=== PATIENT | male | born 1985 | race Caucasian/White ===

== ENCOUNTER 2017-07-01 16:36 | Inpatient (IN) | payer OTHER ==
[2017-07-01] MEDS ORDERED: Mouth Piece, Nicotine* 1 EACH CARTRIDGE INH PRN (17:20)
[2017-07-01] MEDS ORDERED: Mouth Piece, Nicotine* 1 EACH CARTRIDGE ONE (17:28)
[2017-07-01] MEDS: Nicotine Inhaler* 10 MG AMP INH ONE ×2 (17:32→21:21)
--- NOTE | 2017-07-01 18:10 | ED ---
Psychiatric Complaint - HPI Summary HPI Summary: 32 male presents to ED brought in by police after stating he is having suicidal ideation. Denies homicidal ideation. States his "heart hurts because it is broken." Admits to alcohol use prior to arrival "a few natty daddy's". 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 Patient was quiet and did not share much history just said he has a lot of stress. Patient has been calling police stating suicidal statements. Told police if he isn't admitted to the hospital he will be tonight. Told officers that he "can't wait to buy a bullet and be done with it." Has not attempted self harm recently. Does have history of self harm and cutting wrists. No other complaints at this time. No PMHx. No other medications. No recent use of other drugs/heroin. Takes suboxone TID - History Of Current Complaint Chief Complaint: EDMentalHealth Time Seen by Provider: 07/01/17 17:03 Hx Obtained From: Patient, Other: - [employer] Onset/Duration: Gradual Onset Timing: Constant Severity Initially: Mild Severity Currently: Moderate Character: Depressed Aggravating Factor(s): Recent Stress, Alcohol Use Related History: Positive For: Prior Psychiatric Issues Has Suicidal: Reports: Thoughts. Denies: With A Plan - did not Has Homicidal: Denies: Thoughts, With A Plan - Allergies/Home Medications Allergies/Adverse Reactions: Allergies Allergy/AdvReac Type Severity Reaction Status Date / Time Trazodone Allergy Severe See Comment Verified 10/08/16 06:55 Penicillin V Allergy Mild Hives Verified 10/08/16 06:55 [From Penicillin VK Potassium] Tramadol Allergy Mild Hives Verified 10/08/16 06:55 Home Medications: Home Medications Buprenorphine/Naloxone SL TAB* [Suboxone 8-2 mg SL TAB*] 1 tab SL TID 07/01/17 [ History Confirmed 07/01/17] PMH/Surg Hx/FS Hx/Imm Hx Endocrine/Hematology History: Denies: Hx Diabetes, Hx Thyroid Disease Cardiovascular History: Denies: Hx Hypertension Respiratory History: Reports: Hx Pneumonia, Other Respiratory Problems/ Disorders - Hx Pneumonia Denies: Hx Asthma, Hx Chronic Bronchitis, Hx Chronic Obstructive Pulmonary Disease (COPD) GI History: Denies: Hx Ulcer History: Reports: Hx Acute Renal Failure Denies: Hx Renal Disease Comment Only: Other Problems/Disorders - Hepatitis C Musculoskeletal History: Reports: Hx Back Problems, Other Musculoskeletal History - head injury as child Denies: Hx Scoliosis Sensory History: Reports: Hx Vision Problem Denies: Hx Hearing Aid Comment Only: Hx Contacts or Glasses - unknown Opthamlomology History: Reports: Hx Vision Problem Comment Only: Hx Contacts or Glasses - unknown Neurological History: Denies: Hx Headaches, Other Neuro Impairments/Disorders Psychiatric History: Reports: Hx Suicide Attempt - 2 years ago - Surgical History Surgery Procedure, Year, and Place: Tubes in ears as a child - Immunization History Date of Tetanus Vaccine: pt states unsure Date of Influenza Vaccine: none Immunizations Up to Date: Yes Infectious Disease History: Unable to Obtain/Confirm Infectious Disease History: Reports: Hx Hepatitis, Hx of Known/Suspected MRSA Denies: Hx Clostridium Difficile, Hx Human Immunodeficiency Virus (HIV), Hx Shingles, Hx Tuberculosis, Hx Known/Suspected VRE, Hx Known/Suspected VRSA, History Other Infectious Disease, Traveled Outside the [place] in Last 30 Days - Family History Known Family History: Positive: Other - thyroid dz - Social History Alcohol Use: Occasionally Substance Use Type: Reports: None Substance Use Comment - Amount & Last Used: Per report, Meth Smoking Status (MU): Heavy Every Day Tobacco Smoker Amount Used/How Often: 4 cigs per day Review of Systems Constitutional: Negative Cardiovascular: Negative Respiratory: Negative Gastrointestinal: Negative Positive: Depressed All Other Systems Reviewed And Are Negative: Yes Physical Exam Triage Information Reviewed: Yes Vital Signs On Initial Exam: Initial Vitals Temp Pulse Resp BP Pulse Ox 97.0 F 100 20 148/102 94 07/01/17 16:37 07/01/17 16:37 07/01/17 16:37 07/01/17 16:37 07/01/17 16:37 elevated BP noted, follow up with PCP, patient anxious and asymptomatic. Vital Signs Reviewed: Yes Appearance: Positive: Well-Appearing - sleeping upon entry, comfortable, non talkative, No Pain Distress, Well-Nourished Skin: Positive: Warm, Skin Color Reflects Adequate Perfusion, Dry. Negative: Cold, Cyanosis @, Pale, Erythema @ Head/Face: Positive: Normal Head/Face Inspection Eyes: Positive: EOMI, ALE, Conjunctiva Clear ENT: Positive: Normal ENT inspection, Hearing grossly normal, Pharynx normal Neck: Positive: Supple, Nontender Respiratory/Lung Sounds: Positive: Clear to Auscultation, Breath Sounds Present. Negative: Rales, Rhonchi, Wheezes Cardiovascular: Positive: Normal, RRR, Pulses are Symmetrical in both Upper and Lower Extremities. Negative: Murmur, Rub Bowel Sounds: Positive: Present Musculoskeletal: Positive: Normal, Strength/ROM Intact Neurological: Positive: Normal, Sensory/Motor Intact, Alert, Oriented to Person Place, Time, CN Intact II-III, Reflexes Intact, NV Bundle Intact Distally, Normal Gait Psychiatric: Positive: Affect/Mood Appropriate - flat, Anxious, Depressed - not very talkative - Smiley Coma Scale Best Eye Response: 4 - Spontaneous Best Motor Response: 6 - Obeys Commands Best Verbal Response: 5 - Oriented Diagnostics - Vital Signs Vital Signs Temp Pulse Resp BP Pulse Ox 07/01/17 16:37 97.0 F 100 20 148/102 94 - Laboratory Result Diagrams: 07/01/17 18:25 07/01/17 18:25 Lab Statement: Any lab studies that have been ordered have been reviewed, and results considered in the medical decision making process. Re-Evaluation - Re-Evaluation First Eval Re-Evaluation Time: 20:07 Change: Unchanged - feeling fine, sleeping upon arrival, comfortable and without complaint, waiting for MHE now that nmore sober. CTA RRR Course/Dx - Course Course Of Treatment: labs and urinalysis obtained. unremarkable other than elevated liver enzymes and serum alcohol. known alcohol use prior to arrival. liver enzymes always elevated when compared to previous labs. Patient suffers from hepatitis. patient given suboxone and nicotine inhaler. was cooperative throughout stay without complaint. Patient was cleared and pending MHE. Sleeping during stay. Patient was signed out to Marina PONCE at shift change pending MHE and dispo. - Differential Dx/Clinical Impression Differential Diagnosis/HQI/PQRI: Positive: Anxiety, Depression, Suicidal Ideation Provider Diagnosis: Depression, Suicidal ideation, Alcohol use - Physician Notifications Discussed Care Of Patient With: GIL and Marina PONCE at shift change Time Discussed With Above Provider: 20:30 Patient Is Medically Stable For: Psych Evaluation Discharge - Discharge Plan Condition: Stable Disposition: OTHER Discharge Disposition Comment: signed out to Marina PONCE at shift change pending MHE Referrals: Non Staff,Doctor [Primary Care Provider] -
[2017-07-01 18:43] LABS: ABS Basophils 0.1 10^3/ul (0-0.2); ABS Eosinophils 0.1 10^3/ul (0-0.6); ABS Lymphocytes 3.3 10^3/ul (1.0-4.8); ABS Monocytes 0.6 10^3/ul (0-0.8); ABS Neutrophils 5.1 10^3/ul (1.5-7.7); ABS Nucleated RBC 0 10^3/ul; Eosinophil % 1.3 % (0-6); Hematocrit 43 % (42-52); Hemoglobin 14.4 g/dl (14.0-18.0); Lymphocyte % 35.8 % (25-47); Mean Corpuscular HGB Conc 34 g/dl (31-36); Mean Corpuscular Hemoglobin 30 pg (27-31); Mean Corpuscular Volume 89 fL (80-94); Mean Platelet Volume 8 um3 (7.4-10.4); Nucleated Red Blood Cells % 0.1; Platelet Count 237 10^3/ul (150-450); Red Blood Count 4.82 10^6/ul (4.0-5.4); Red Cell Distribution Width 14 % (10.5-15); White Blood Count 9.2 10^3/ul (3.5-10.8)
[2017-07-01 18:56] LABS: EGFR Non-African American 107.3 (>60)
[2017-07-01] MEDS ORDERED: Buprenorphine/Naloxone 8-2 MG SL TAB* 1 TAB PO ONE (19:38)
[2017-07-01] MEDS ORDERED: Nicotine Inhaler* 10 MG AMP ONE (21:19)
[2017-07-01 22:07] LABS: Urine Appearance Clear; Urine Blood Negative (Negative); Urine Color Yellow; Urine Ketones Negative (Negative); Urine Protein Negative (Negative); Urine Urobilinogen Negative (Negative)
--- NOTE | 2017-07-01 22:29 | PN ---
Progress Note - Progress Note Date of Service: 07/01/17 Note: Patient signed out by Kalani pending MHE Patient wanted to leave but made him involuntary due to suicidal ideation. After mental health patient is going to be admitted Diagnosis: depression Condition:stable disposition:admitted
[2017-07-01] MEDS ORDERED: LORazepam IM 0-6 mg for WAM protocol IM SCH (23:00)
[2017-07-01] MEDS ORDERED: LORazepam PO 0-6 for WAM protocol PO SCH (23:00)
[2017-07-01] MEDS ORDERED: Buprenorphine/Naloxone 8-2 MG SL TAB* 1 TAB SL ONE (23:15)
[2017-07-01] MEDS ORDERED: Al Hydrox/Mg Hydrox/Simet LIQ* 30 ML UDC PO PRN (23:33)
[2017-07-01] MEDS ORDERED: Nicotine GUM* 2 MG PO PRN (23:33)
[2017-07-01] MEDS ORDERED: Mouth Piece, Nicotine* 1 EACH CARTRIDGE INH SCH (23:33)
[2017-07-01] MEDS ORDERED: Nicotine Inhaler* 10 MG AMP INH PRN (23:33)
[2017-07-01] MEDS ORDERED: chlorproMAZINE TAB* 50 MG Q6H PRN AGITATION PO (23:33)
[2017-07-01] MEDS ORDERED: Acetaminophen TAB* 325 MG PO PRN (23:33)
[2017-07-02] MEDS: Gabapentin CAP(*) 300 MG PO SCH ×3 (01:48→08:48)
[2017-07-02 08:16] VITALS: BP 117/54
[2017-07-02] MEDS ORDERED: Thiamine TAB* 100 MG TAB DAILY (@ T+1) PO SCH (09:00)
[2017-07-02] MEDS ORDERED: Folic Acid TAB* 1 MG DAILY PO SCH (09:00)
[2017-07-02] MEDS ORDERED: Vitamin THERAPEUTIC TAB PO SCH (09:00)
--- NOTE | 2017-07-02 10:39 | ADMNOTE ---
History - Objective HPI: Admission H and P and Discharge Note Plan - Treatment Plan Medications: Current Medications Acetaminophen (Tylenol Tab*) 650 mg PO Q4H PRN PRN Reason: PAIN or TEMP > 101 F Al Hydrox/Mg Hydrox/Simethicone (Maalox Plus*) 30 ml PO Q4H PRN PRN Reason: INDIGESTION Chlorpromazine HCl (Thorazine Tab*) 50 mg PO Q6H PRN PRN Reason: DANGEROUS AGITATION Device (Nicotine Mouth Piece*) 1 each INH .USE WITH NICOTROL PRN PRN Reason: CRAVING Device (Nicotine Mouth Piece*) 1 each INH .[facility] Folic Acid (Folvite Tab*) 1 mg PO DAILY [facility] Last Admin: 07/02/17 09:11 Dose: Not Given Gabapentin (Neurontin Cap(*)) 300 mg PO QID [facility] Lorazepam (Ativan Tab(*)) 0 - 6 mg PO .PER WAM [employer]ERS BEATRIZ PRN Reason: Protocol Lorazepam (Ativan Inj*) 0 - 6 mg IM .PER WAM PROTOCOL BEATRIZ PRN Reason: Protocol Multivitamins (Theragran Tab*) 1 tab PO DAILY [facility] Last Admin: 07/02/17 09:11 Dose: Not Given Nicotine (Nicotine Inhaler*) 10 mg INH Q2H PRN PRN Reason: CRAVING Nicotine Polacrilex (Nicotine Gum*) 2 mg PO Q2H PRN PRN Reason: CRAVING Thiamine HCl (Vitamin B-1 Tab*) 100 mg PO DAILY [facility] Last Admin: 07/02/17 09:11 Dose: Not Given
[2017-07-02] MEDS ORDERED: Buprenorphine/Naloxone 8-2 MG SL TAB* 1 TAB PO ONE ×2 (12:23→18:05)
[2017-07-02] MEDS ORDERED: Gabapentin CAP(*) 400 MG PO SCH (13:00)
== END 2017-07-02 13:30 | DRG 754 ==
LOC: ED 16:36 → BSU 22:45
PROVIDERS: ADMIT Psychiatry & Neurology Psychiatry; ATTEND Psychiatry & Neurology Psychiatry
DX: F32.9 Major depressive disorder, single episode, unspecified (principal); R45.851 Suicidal ideations
CPT/HCPCS: 36415; 80053; 80074; 80307; 80320; 80329; 81003; 84443; 85025; 96372; 99238; 99284; A9270-GY; G0480

== ENCOUNTER 2017-07-19 17:52 | Emergency (ER) | payer OTHER ==
[2017-07-19 18:14] VITALS: BP 00/00
== END 2017-07-19 18:14 | disposition left against medical advice (07) ==
LOC: ED 17:52
DX: T69.9XXA Effect of reduced temperature, unspecified, initial encounter (principal); Z53.21 Procedure and treatment not carried out due to patient leaving prior to being seen by health care provider

== ENCOUNTER 2017-07-19 21:49 | Inpatient (IN) | payer OTHER ==
[2017-07-19] MEDS ORDERED: NS 0.9% 1000 ML*IV.FLUID IV ONE (23:42)
[2017-07-19 23:57] LABS: Hematocrit 37 % (42-52); Hemoglobin 12.7 g/dl (14.0-18.0); Mean Corpuscular HGB Conc 34 g/dl (31-36); Mean Corpuscular Hemoglobin 30 pg (27-31); Mean Corpuscular Volume 87 fL (80-94); Mean Platelet Volume 8 um3 (7.4-10.4); Platelet Count 222 10^3/ul (150-450); Red Blood Count 4.29 10^6/ul (4.0-5.4); Red Cell Distribution Width 14 % (10.5-15)
[2017-07-20 00:35] LABS: EGFR Non-African American 116.9 (>60)
[2017-07-20 00:36] LABS: ABS Basophils 0.1 10^3/ul (0-0.2); ABS Eosinophils 0.1 10^3/ul (0-0.6); ABS Monocytes 2.1 10^3/ul (0-0.8); ABS Neutrophils 10.7 10^3/ul (1.5-7.7); ABS Nucleated RBC 0 10^3/ul; Eosinophil % 0.4 % (0-6); Lymphocyte % 13.6 % (25-47); Nucleated Red Blood Cells % 0
[2017-07-20] MEDS ORDERED: NS 0.9% 1000 ML* 1,000 ML IV ONE (00:48)
[2017-07-20] MEDS ORDERED: Acetaminophen TAB* 325 MG PO PRN (02:42)
[2017-07-20] MEDS ORDERED: NS 0.9% 1000 ML* 1,000 ML IV SCH (02:45)
--- NOTE | 2017-07-20 03:44 | ED ---
Progress - Progress Note Progress Note: I supervised the care of the PA and performed a hx and physical on this patient. Hx: Homeless, sleeping outside. Hx of drug/alcohol abuse. Now with red rash, swelling and pain in both legs. PE: Disheveled. Eating sandwich and drinking soda. Whole body carina erythema with non pitting edema to extremities. Heart/lungs normal. Plan: Pt with cold exposure, high CPK and alcohol abuse. Rash is likely due to cold and poor nutrition. Admit for obs, follow CK EKG: Sinus tach, rate of 107. Nl axis, interval and ST segments. Course/Dx - Course Course Of Treatment: will be admitted thru hospitalist service. Dr. Anthony Lin evaluated at the bedside. - Diagnoses Provider Diagnoses: Elevated CPK, Frostbite, Drug abuse, Alcohol abuse
[2017-07-20] MEDS: Levofloxacin 750 MG IVPREMIX(* 750 MG/150 ML BAG IVPB SCH (05:17)
--- NOTE | 2017-07-20 05:27 | HP ---
ADMISSION HISTORY AND PHYSICAL: DATE OF ADMISSION: 07/20/17 PRIMARY CARE PROVIDER: None. HEALTHCARE PROXY: None. CODE STATUS: Full. SOURCE OF INFORMATION: History obtained from interview with the patient and review of past medical records. RELIABILITY: Poor. CHIEF COMPLAINT: Frostbite. HISTORY OF PRESENT ILLNESS: This is a 32-year-old man, history of active polysubstance abuse, last admission to the hospital with hallucinations in the setting of methamphetamine use, presented to the hospital earlier today, then left and returned, complaining of frostbite in his fingers. He is noted to have fever as well as leukocytosis, tachycardia. Hospitalist service was asked to consult. The patient is a difficult historian, frequently falling asleep during the interview, difficult to concentrate, gives variant accounts of what has been transpiring over the past several weeks. ED provider relate that he is currently undomiciled, although he will not say where he is currently living or if he is currently actively using IV drugs. He did note a cough for the last several days associated with a lower extremity pain without associated trauma. Associated with myalgias and chills with subjective fevers. He notes sore throat. No rhinorrhea. No headache. No chest pain. No shortness of breath. No nausea, vomiting, diarrhea, or constipation. In the emergency room , he was noted to have a temperature of 101 as well as tachycardia to 125 beats per minute; therefore, meeting criteria for SIRS, although not sepsis and absence of infectious etiology. PAST MEDICAL HISTORY: Includes polysubstance abuse, HCV, gout, past suicide attempts, bilateral myringotomy, tobacco abuse. MEDICATIONS: None, although he does indicate he is using Suboxone on the street. ALLERGIES: TRAZODONE, PENICILLIN V, and TRAMADOL. FAMILY HISTORY: Thyroid disease, blood clots. SOCIAL HISTORY: Polysubstance abuse, undomiciled. REVIEW OF SYSTEMS: Difficult to obtain, although indicates cough, sore throat, chills, myalgias. PHYSICAL EXAMINATION GENERAL: Unkempt, falling asleep during conversations, easily awake. VITAL SIGNS: In the emergency room, T-max 101, blood pressure 150/76, heart rate 125, respiratory rate is 20, 96% on room air. HEENT: His oropharynx is clear and moist mucous membranes. Sclerae are anicteric. LUNGS: Clear to auscultation except for rales in his right base. HEART: Tachycardic heart rate. No murmurs, rubs, or gallops. ABDOMEN: Soft, nontender, and nondistended. EXTREMITIES: Warm and well perfused. Trace edema bilaterally. NEUROLOGIC: He is alert and oriented x3, lethargic, easily falls asleep, easy to wake. SKIN: Dirty. He has several what appeared to be homemade tattoos. His bilateral legs are erythematous without focality. He is tender to palpation on bilateral popliteal fossa. DIAGNOSTIC DATA: Chest x-ray interpreted by this author, no evidence for active cardiopulmonary disease on PA and lateral exam. EKG is pending. LABORATORY DATA: Reviewed. White blood cell count 15,000, predominantly monocytes. Total bilirubin is 1.2, AST is 66, ALT is 81. His creatine kinase is 834 and CRP is 224. Negative for influenza, although noted to have a poor acquisition. Urinalysis is pending. ASSESSMENT AND PLAN: This is a 32-year-old man presenting with pain, found with fever, leukocytosis, tachycardia, concerning for sepsis. 1. Sepsis on admission. I doubt about etiology, could be all in the setting of polysubstance abuse, which has included methamphetamines in the past; however , still pending urinalysis. Additional check bilateral Dopplers of lower extremities, has popliteal pain as predominant symptom was presenting complaints. Additionally in the setting of transaminitis, slightly elevated total bilirubin. We will check ultrasound of his gallbladder, noting though he does have active hepatitis C. While influenza A and B are negative, it was noted to be a poor acquisition as he pulled away from the probe. Urinalysis additionally pending. In addition to fluids, we will continue Levaquin, which was chosen based on his allergy to penicillin. He did have rales in his right base, which may indicate a pneumonia and not identified on the chest x-ray or atelectasis. 2. Tachycardia suspect in the setting of fever. Check EKG now. 3. Elevated CK. Fluids for 2 additional liters, recheck in the morning. 4. DVT prophylaxis. Low risk. [id number]/[facility] #: [id number] [facility] MEDICAL CENTERRancho
--- NOTE | 2017-07-20 07:59 | RAD ---
HISTORY: Febrile COMPARISONS: October 09, 2016 VIEWS: 4: Frontal and lateral views of the chest. FINDINGS: CARDIOMEDIASTINAL SILHOUETTE: The cardiomediastinal silhouette is normal. MARIYA: The mariya are normal. PLEURA: The costophrenic angles are sharp. No pleural abnormalities are noted. LUNG PARENCHYMA: The lungs are clear. The left lower lung nodule noted on the previous examination is not well-visualized on the current examination. ABDOMEN: The upper abdomen is clear. There is no subphrenic gas. BONES AND SOFT TISSUES: No bone or soft tissue abnormalities are noted. OTHER: None. IMPRESSION: NO ACTIVE CARDIOPULMONARY DISEASE.
[2017-07-20 08:05] LABS: Urine Appearance Clear; Urine Blood Negative (Negative); Urine Color Yellow; Urine Ketones 1+ (Negative); Urine Protein 1+(30 mg/dL) (Negative); Urine Specific Gravity 1.023 (1.010-1.030); Urine Urobilinogen Negative (Negative)
--- NOTE | 2017-07-20 09:47 | ED ---
HPI Cardiac - HPI Summary HPI Summary: Patient is a 32-year-old homeless male with a history of extensive IV drug use who presents to the ED for the second time today after left without being seen a few hours ago. He presents with a chief complaint of having difficulty walking due to edematous bilateral lower extremities, erythema to the full body , feeling ill for several days, shortness of breath, and extreme fatigue. He has been undomiciled for over one month per patient but is unable to communicate where is he is currently staying. He is currently taking Suboxone for heroin drug use. He notes to cannabinoid and amphetamine use as well. He endorses left and right third fourth and a little distal fingertip pain and tingling from recent frostbite. Patient is a poor historian and is unable to discuss any known health history. He is requesting a sandwich and denies any difficulty swallowing. Denies headache. Occasional smoker and drinker. - History of Current Complaint Chief Complaint: EDGeneral Stated Complaint: PAIN FROM EXPOSURE Time Seen by Provider: 07/19/17 23:17 Hx Obtained From: Patient Onset/Duration: Started Weeks Ago Timing: Constant Initial Severity: Severe Current Severity: Severe Pain Intensity: 2 Pain Scale Used: 0-10 Numeric Chest Pain Location: Diffuse Aggravating Factor(s): Nothing Alleviating Factor(s): Nothing Associated Signs and Symptoms: Positive: Headaches, Weakness, Dizziness, Shortness of Breath, Fever, Chills, Lightheadedness, Calf Pain/Swelling. Negative: Syncope, Diaphoresis, Nausea, Palpitations, Cough, Productive Cough, Nonproductive Cough, Wheezing, Nasal Congestion, URI, Hoarseness - Risk Factors Atrial Fibrillation Risk Factors: Negative TAD Risk Factors: Negative - Additional Pertinent History Primary Care Physician: [id number] Oxygen Devices Used Prior to Hospitalization: None - Allergy/Home Medications Allergies/Adverse Reactions: Allergies Allergy/AdvReac Type Severity Reaction Status Date / Time Trazodone Allergy Severe See Comment Verified 10/08/16 06:55 Penicillin V Allergy Mild Hives Verified 10/08/16 06:55 [From Penicillin VK Potassium] Tramadol Allergy Mild Hives Verified 10/08/16 06:55 PMH/Surg Hx/FS Hx/Imm Hx Previously Healthy: No Endocrine/Hematology History: Denies: Hx Diabetes, Hx Thyroid Disease Cardiovascular History: Denies: Hx Hypertension Respiratory History: Reports: Hx Pneumonia, Other Respiratory Problems/ Disorders - Hx Pneumonia Denies: Hx Asthma, Hx Chronic Bronchitis, Hx Chronic Obstructive Pulmonary Disease (COPD) GI History: Denies: Hx Ulcer History: Reports: Hx Acute Renal Failure Denies: Hx Renal Disease Comment Only: Other Problems/Disorders - Hepatitis C Musculoskeletal History: Reports: Hx Back Problems, Hx Gout, Other Musculoskeletal History - head injury as child Denies: Hx Scoliosis Sensory History: Reports: Hx Contacts or Glasses, Hx Vision Problem, Other Sensory Impairments - Bilateral Myringetomy Denies: Hx Hearing Aid Opthamlomology History: Reports: Hx Contacts or Glasses, Hx Vision Problem, Other Sensory Impairments - Bilateral Myringetomy Neurological History: Denies: Hx Headaches, Other Neuro Impairments/Disorders Psychiatric History: Reports: Hx Depression, Hx Suicide Attempt, Other Psychiatric Issues/Disorders - polysubstance abuse Denies: Hx Eating Disorder, Hx of Violent Episodes Against Others - Surgical History Surgery Procedure, Year, and Place: Bilateral myringetomy - Immunization History Date of Tetanus Vaccine: pt states unsure Date of Influenza Vaccine: none Infectious Disease History: Yes Infectious Disease History: Reports: Hx Hepatitis - HCV, Hx of Known/Suspected MRSA Denies: Hx Clostridium Difficile, Hx Human Immunodeficiency Virus (HIV), Hx Shingles, Hx Tuberculosis, Hx Known/Suspected VRE, Hx Known/Suspected VRSA, History Other Infectious Disease, Traveled Outside the [place] in Last 30 Days - Family History Known Family History: Positive: Other - thyroid dz - Social History Occupation: Unemployed Lives: Alone - homeless Alcohol Use: Daily Alcohol Amount: Couple beers a day Hx Substance Use: Yes Substance Use Type: Reports: Heroin, Marijuana, Other Substance Use Comment - Amount & Last Used: meth Smoking Status (MU): Heavy Every Day Tobacco Smoker Amount Used/How Often: 4 cigs per day Review of Systems Positive: Fever, Chills, Fatigue, Skin Diaphoresis Negative: Photophobia, Blurred Vision, Diplopia Negative: Dental Pain, Sore Throat, Ear Ache, Nasal Discharge Cardiovascular: Negative Positive: Shortness Of Breath. Negative: Cough Negative: Abdominal Pain, Vomiting, Diarrhea, Nausea Positive: no symptoms reported, see HPI Positive: Arthralgia, Myalgia - diffuse Positive: Other - body carina erythema with non pitting edema to extremities. Neurological: Negative All Other Systems Reviewed And Are Negative: Yes Physical Exam Triage Information Reviewed: Yes Vital Signs On Initial Exam: Initial Vitals Temp Pulse Resp BP Pulse Ox 101.0 F 109 18 147/95 97 07/19/17 21:55 07/19/17 21:55 07/19/17 21:55 07/19/17 21:55 07/19/17 21:55 Vital Signs Reviewed: Yes Completion Of Physical Exam Limited Due To: Altered Mental Status, Other - poor historian Appearance: Positive: Ill-Appearing - Patient is disheveled Skin: Positive: Other - body carina erythema with non pitting edema to extremities. Head/Face: Positive: Normal Head/Face Inspection Eyes: Positive: Other: - Slight scleral icterus bilaterally Neck: Positive: Nontender, No Lymphadenopathy Cardiovascular: Positive: Pulses are Symmetrical in both Upper and Lower Extremities Bowel Sounds: Positive: Present Musculoskeletal: Positive: Pain @ - Diffuse throughout bilateral upper and lower extremities, Edema Left, Edema Right Psychiatric: Positive: Other - Prior psychiatric history AVPU Assessment: Alert Diagnostics - Vital Signs Vital Signs Temp Pulse Resp BP Pulse Ox 07/20/17 01:25 100.4 F 125 20 150/76 96 07/20/17 01:14 121 95 07/20/17 01:00 125 96 07/20/17 00:01 122 150/76 97 07/20/17 00:00 125 99 07/19/17 23:58 100.4 F 126 99 07/19/17 23:30 119 133/74 100 07/19/17 23:00 112 149/81 96 07/19/17 22:46 104 133/77 100 07/19/17 21:55 101.0 F 109 18 147/95 97 - Laboratory Lab Results: Lab Results 07/19/17 07/19/17 07/19/17 Range/Units 23:45 23:45 23:45 WBC 15.0 H (3.5-10.8) 10^3/ul RBC 4.29 (4.0-5.4) 10^6/ul Hgb 12.7 L (14.0-18.0) g/dl Hct 37 L (42-52) % MCV 87 (80-94) fL MCH 30 (27-31) pg MCHC 34 (31-36) g/dl RDW 14 (10.5-15) % Plt Count 222 (150-450) 10^3/ul MPV 8 (7.4-10.4) um3 Neut % (Auto) 71.7 (38-83) % Lymph % (Auto) 13.6 L (25-47) % [place] % (Auto) 13.8 H (1-9) % Eos % (Auto) 0.4 (0-6) % Baso % (Auto) 0.5 (0-2) % Absolute Neuts (auto) 10.7 H (1.5-7.7) 10^3/ul Absolute Lymphs (auto) 2.0 (1.0-4.8) 10^3/ul Absolute Monos (auto) 2.1 H (0-0.8) 10^3/ul Absolute Eos (auto) 0.1 (0-0.6) 10^3/ul Absolute Basos (auto) 0.1 (0-0.2) 10^3/ul Absolute Nucleated RBC 0 10^3/ul Nucleated RBC % 0 Sodium 131 L (133-145) mmol/L Potassium 3.6 (3.5-5.0) mmol/L Chloride 97 L (101-111) mmol/L Carbon Dioxide 20 L (22-32) mmol/L Anion Gap 14 H (2-11) mmol/L BUN 15 (6-24) mg/dL Creatinine 0.78 (0.67-1.17) mg/dL Est GFR ( Amer) 150.3 (>60) Est GFR (Non-Af Amer) 116.9 (>60) BUN/Creatinine Ratio 19.2 (8-20) Glucose 95 (70-100) mg/dL Lactic Acid 0.9 (0.5-2.0) mmol/L Calcium 9.3 (8.6-10.3) mg/dL Total Bilirubin 1.20 H (0.2-1.0) mg/dL AST 66 H (13-39) U/L ALT 81 H (7-52) U/L Alkaline Phosphatase 94 (34-104) U/L Total Creatine Kinase 834 H (10-223) U/L C-Reactive Protein 224.60 H (< 5.00) mg/L Total Protein 7.1 (6.4-8.9) g/dL Albumin 4.1 (3.2-5.2) g/dL Globulin 3.0 (2-4) g/dL Albumin/Globulin Ratio 1.4 (1-3) Influenza A (Rapid) (Negative) Influenza B (Rapid) (Negative) 07/19/17 Range/Units 23:54 WBC (3.5-10.8) 10^3/ul RBC (4.0-5.4) 10^6/ul Hgb (14.0-18.0) g/dl Hct (42-52) % MCV (80-94) fL MCH (27-31) pg MCHC (31-36) g/dl RDW (10.5-15) % Plt Count (150-450) 10^3/ul MPV (7.4-10.4) um3 Neut % (Auto) (38-83) % Lymph % (Auto) (25-47) % [place] % (Auto) (1-9) % Eos % (Auto) (0-6) % Baso % (Auto) (0-2) % Absolute Neuts (auto) (1.5-7.7) 10^3/ul Absolute Lymphs (auto) (1.0-4.8) 10^3/ul Absolute Monos (auto) (0-0.8) 10^3/ul Absolute Eos (auto) (0-0.6) 10^3/ul Absolute Basos (auto) (0-0.2) 10^3/ul Absolute Nucleated RBC 10^3/ul Nucleated RBC % Sodium (133-145) mmol/L Potassium (3.5-5.0) mmol/L Chloride (101-111) mmol/L Carbon Dioxide (22-32) mmol/L Anion Gap (2-11) mmol/L BUN (6-24) mg/dL Creatinine (0.67-1.17) mg/dL Est GFR ( Amer) (>60) Est GFR (Non-Af Amer) (>60) BUN/Creatinine Ratio (8-20) Glucose (70-100) mg/dL Lactic Acid (0.5-2.0) mmol/L Calcium (8.6-10.3) mg/dL Total Bilirubin (0.2-1.0) mg/dL AST (13-39) U/L ALT (7-52) U/L Alkaline Phosphatase (34-104) U/L Total Creatine Kinase (10-223) U/L C-Reactive Protein (< 5.00) mg/L Total Protein (6.4-8.9) g/dL Albumin (3.2-5.2) g/dL Globulin (2-4) g/dL Albumin/Globulin Ratio (1-3) Influenza A (Rapid) Negative (Negative) Influenza B (Rapid) Negative (Negative) Result Diagrams: 07/19/17 23:45 07/19/17 23:45 Lab Statement: Any lab studies that have been ordered have been reviewed, and results considered in the medical decision making process. Disposition - Course Course Of Treatment: During the course of treatment the patient is evaluated for generalized weakness, illness, fever, tachycardia. Labs obtained and noted to have leukocytosis at 15 with an elevated CK at 834. Patient is given 2 L normal saline for dehydration and potential rhabdomyolysis for inability to ambulate for several days. Chest x-ray obtained and read by Dr. Iyer and myself as normal however there are right basilar crackles and will obtain final read by radiologist to get results in the morning. Patient is tachycardic on arrival at 121. I have discussed the case with Dr. Lin ( hospitalist) who agrees to come see and admit patient based on lab and vital sign findings. Patient meets sepsis protocol. Influenza negative. EKG shows sinus tachycardia with no other changes. Discussed the case as well with Dr. Iyer who was able to see the patient and perform a history and physical. Considered endocarditis due to significant IV drug use and this will be followed in labs and response to therapy. May need echo. He is admitted at this time. - Diagnoses Provider Diagnoses: Elevated CPK, Frostbite, Drug abuse, Alcohol abuse Discharge - Discharge Plan Condition: Fair Disposition: ADMITTED TO [facility]
--- NOTE | 2017-07-20 11:59 | RAD ---
HISTORY: Fever, transaminitis. COMPARISONS: None TECHNIQUE: Multiple transverse and longitudinal ultrasound images were obtained of the right upper quadrant of the abdomen using grayscale and color Doppler imaging. FINDINGS: LIVER: The liver is diffusely echogenic and coarse in echotexture, with decreased acoustic transmission. The liver measures 20.6 cm in long axis.. There is normal hepatopedal flow of the portal vein on Doppler imaging. BILIARY TREE: There is no intrahepatic or extrahepatic biliary dilatation. The common duct measures 0.4 cm. GALLBLADDER: The gallbladder is well-visualized. There is no cholelithiasis, gallbladder wall thickening, pericholecystic fluid, or sonographic Luciano sign. PANCREAS: The head of the pancreas is unremarkable. The tail of the pancreas is not well visualized secondary to overlying bowel gas. RIGHT KIDNEY: The right kidney is normal in shape, size, contour, and echogenicity. There is no hydronephrosis or nephrolithiasis. The right kidney measures 12.4 x 6.8 x 5.9 cm. AORTA AND IVC: The aorta and IVC are unremarkable. FLUID: There are no pleural effusions. There is no free fluid within the hepatorenal recess. OTHER FINDINGS: None. IMPRESSION: HEPATOMEGALY WITH FATTY INFILTRATION OF THE LIVER
--- NOTE | 2017-07-20 12:02 | RAD ---
HISTORY: Bilateral popliteal pain COMPARISONS: None relevant TECHNIQUE: Multiple transverse and longitudinal ultrasound images were obtained of the right lower extremity from the level of the common femoral vein inferiorly through to the infrapopliteal veins using grayscale, color Doppler, and spectral Doppler imaging with and without compression and with augmentation. Comparison images were obtained of the contralateral common femoral vein. The patient deferred examination of the left lower extremity. FINDINGS: VEINS: The venous system of the right lower extremity is compressible throughout its course, with normal flow on color Doppler imaging and normal response to augmentation on spectral Doppler imaging. SOFT TISSUES: Unremarkable. OTHER FINDINGS: None. IMPRESSION: 1. NO RIGHT LOWER EXTREMITY DEEP VEIN THROMBOSIS 2. THE PATIENT DEFERRED THE EVALUATION OF THE LEFT LOWER EXTREMITY.
--- NOTE | 2017-07-20 12:16 | PN ---
Subjective Date of Service: 07/20/17 Interval History: Patient admitted yesterday w/ ?frostbite, ?sepsis, not cooperative in ER, difficult history. Today he states he is hungry, his fingertips are tingling. He states both legs are severely painful, cannot bear weight. Tolerated LE doppler on RLE. No known trauma or infection in legs. He states he cannot move his RT toes. Also reports pain in LS spine, both flanks, and LLQ abdomen. Reports he sees Dr. Haley at [facility], on suboxone 8 mg TID Family History: Unchanged from Admission Social History: Unchanged from Admission Past Medical History: Unchanged from Admission Objective Active Medications: Acetaminophen (Tylenol Tab*) 650 mg PO Q4H PRN PRN Reason: FEVER/PAIN Sodium Chloride (Ns 0.9% 1000 Ml*) 1,000 mls @ 150 mls/hr IV PER [facility] Stop: 07/21/17 09:24 Last Admin: 07/20/17 05:16 Dose: 150 mls/hr Levofloxacin/Dextrose (Levaquin 750 Mg Ivpremix(*)) 750 mg in 150 mls @ 100 mls /hr IVPB [facility] Last Admin: 07/20/17 05:17 Dose: 100 mls/hr Vital Signs - 8 hr 07/20/17 07/20/17 07:50 07:53 Temperature 37.0 C Pulse Rate 100 Respiratory 20 18 Rate Blood Pressure 122/62 (mmHg) O2 Sat by Pulse 94 Oximetry Oxygen Devices in Use Now: None Appearance: awake, irritable Eyes: No Scleral Icterus Ears/Nose/Mouth/Throat: Clear Oropharnyx Neck: No Thyroid Enlargement, Masses Respiratory: Symmetrical Chest Expansion and Respiratory Effort, Clear to Auscultation Cardiovascular: NL Sounds; No Murmurs; No JVD, RRR Abdominal: NL Sounds; No Tenderness; No Distention, - - hernia present L inguinal, reducible Lymphatic: No Cervical Adenopathy Extremities: No Edema, - - tender to light touch RT calf, RT foot, LT calf Skin: No Rash or Ulcers, - - refused to turn over to examine back Neurological: Alert and Oriented x 3 Lines/Tubes/Other Access: Clean, Dry and Intact Peripheral IV Nutrition: Taking PO's Result Diagrams: 07/19/17 23:45 01/26/18 23:45 Additional Lab and Data: Laboratory Tests 07/19/17 07/19/17 07/19/17 23:45 23:45 23:54 WBC 15.0 H Hgb 12.7 L Hct 37 L C-Reactive Protein 224.60 H Influenza A (Rapid) Negative Influenza B (Rapid) Negative Assess/Plan/Problems-Billing Assessment: 32 year old undomeciled man, presented w/ exposure, possible sepsis, now complaining of bilateral leg pain, inability to walk - Patient Problems (1) Leg pain, bilateral Current Visit: Yes Status: Acute Priority: High Code(s): M79.604 - PAIN IN RIGHT LEG; M79.605 - PAIN IN LEFT LEG SNOMED Code(s): 12006478 Comment: - differential includes DVT, rhabdomyolysis, spinal abscess causing bilat leg pain and weakness. - will follow LE doppler results, and have spine (LS) CT to assess for abscess, cord compression (2) Abdominal pain Current Visit: Yes Status: Acute Priority: Medium Code(s): R10.9 - UNSPECIFIED ABDOMINAL PAIN SNOMED Code(s): 32867205 Comment: -differential includes withdrawal from suboxone, incarcerated hernia , Hep C flare, IVC clot, portal vein thrombosis -Will have CT abdo/pelvis today to assess hernia, rule out IVC clot (3) Opioid dependence Current Visit: No Status: Acute Priority: Medium Code(s): F11.20 - OPIOID DEPENDENCE, UNCOMPLICATED SNOMED Code(s): 61518107 Comment: -restarting Suboxone, may help with pain also (4) Sepsis Current Visit: Yes Status: Acute Priority: High Comment: - Source of sepsis unclear - Will follow blood cultures, search for source underway. - continue empiric levaquin - continue fluid resucitation (5) DVT prophylaxis Current Visit: Yes Status: Acute Priority: Low Code(s): MHI9955 - SNOMED Code(s): 732820261 Comment: -lovenox
[2017-07-20] MEDS ORDERED: Iohexol 300* (CONTRAST) 10 ML SDV IV ONE (12:42)
[2017-07-20] MEDS: Enoxaparin(*) 40 MG/0.4 ML SYR SUBCUT SCH (12:56)
[2017-07-20] MEDS: Nicotine Inhaler* 10 MG AMP INH PRN ×3 (12:56→19:17)
[2017-07-20] MEDS: Buprenorphine/Naloxone 8-2 MG SL TAB* 1 TAB PO SCH ×3 (12:56→21:01)
[2017-07-20] MEDS: Mouth Piece, Nicotine* 1 EACH CARTRIDGE INH PRN ×2 (12:56→19:20)
[2017-07-20] MEDS: NS 0.9% 1000 ML* 1,000 ML IV SCH ×2 (13:00→21:03)
[2017-07-20 14:37] LABS: ABS Basophils 0.1 10^3/ul (0-0.2); ABS Eosinophils 0.1 10^3/ul (0-0.6); ABS Lymphocytes 1.8 10^3/ul (1.0-4.8); ABS Monocytes 1.2 10^3/ul (0-0.8); ABS Neutrophils 6.1 10^3/ul (1.5-7.7); ABS Nucleated RBC 0 10^3/ul; Hematocrit 34 % (42-52); Hemoglobin 11.4 g/dl (14.0-18.0); Lymphocyte % 19.3 % (25-47); Mean Corpuscular HGB Conc 34 g/dl (31-36); Mean Corpuscular Hemoglobin 30 pg (27-31); Mean Corpuscular Volume 89 fL (80-94); Mean Platelet Volume 8 um3 (7.4-10.4); Nucleated Red Blood Cells % 0; Platelet Count 180 10^3/ul (150-450); Red Blood Count 3.82 10^6/ul (4.0-5.4); Red Cell Distribution Width 14 % (10.5-15); White Blood Count 9.2 10^3/ul (3.5-10.8)
[2017-07-20 14:54] LABS: EGFR Non-African American 144.2 (>60)
--- NOTE | 2017-07-20 15:07 | RAD ---
CLINICAL HISTORY: Left lower quadrant pain COMPARISON: July 06, 2013 TECHNIQUE: Multiple contiguous axial CT scans were obtained of the abdomen and pelvis after the administration of intravenous contrast. Coronal and sagittal multiplanar reformations are submitted for review. Oral contrast was administered. Delayed images were obtained through the abdomen and pelvis. FINDINGS: LUNG BASES: There is linear atelectasis of the right lung base. LIVER: The liver is diffusely low in attenuation compared to the spleen. There are no focal hepatic parenchymal masses. The liver measures 20 cm in long axis. BILE DUCTS: There is no intrahepatic or extrahepatic biliary dilatation. GALLBLADDER: The gallbladder is normal, without pericholecystic inflammatory change. PANCREAS: The pancreas is normal, without mass or ductal dilatation. SPLEEN: Normal in size and appearance. UPPER GI TRACT: Evaluation of the gastrointestinal tract is limited by incomplete gastric distention. The upper GI tract is unremarkable. SMALL BOWEL AND MESENTERY: The small bowel is normal in contour, course, and caliber. There is no obstruction or dilatation. COLON: The colon is normal in contour, course, caliber. There is no pericolonic inflammatory change. ADRENALS: Normal bilaterally. KIDNEYS: The kidneys are normal in shape, size, contour, and axis. There is no hydronephrosis or nephrolithiasis. BLADDER: The bladder is incompletely distended and is not well evaluated. PELVIC ORGANS: The prostate gland is normal. The seminal vesicles are symmetric. AORTA: The aorta is normal. IVC: Unremarkable LYMPH NODES: There is no lymphadenopathy by size criteria. ABDOMINAL WALL: There is no evidence for abdominal wall hernia. BONES AND SOFT TISSUES: Unremarkable OTHER: None IMPRESSION: 1. HEPATOMEGALY WITH FATTY INFILTRATION OF LIVER. 2. LINEAR ATELECTASIS OF THE RIGHT LUNG BASE. 3. NO APPRECIABLE HERNIA.
--- NOTE | 2017-07-20 15:20 | RAD ---
HISTORY: Bilateral leg pain, spinal pain, spinal abscess COMPARISONS: None TECHNIQUE: Multiple contiguous axial CT scans were obtained of the lumbar spine with intravenous contrast, with coronal and sagittal multiplanar reformations. FINDINGS: SPINAL CANAL: Evaluation of the central canal is limited on CT technique; however, there is no obvious canalicular mass or epidural hemorrhage. ALIGNMENT: The alignment is normal. VERTEBRAL BODIES: The vertebral bodies are preserved in height. The bones are normal in attenuation. There is mild excellent marginal osteophyte formation at203. JOINTS: There is no subluxation or dislocation. MUSCULATURE: Normal INTERVERTEBRAL DISCS: The intervertebral disc spaces are normal in height. AXIAL IMAGES: There is no osseous neural foraminal narrowing or central canal stenosis. SOFT TISSUES: The visualized soft tissues of the abdomen are unremarkable. OTHER: There are no paraspinal abscesses. There is no appreciable epidural fluid collection. IMPRESSION: NO FINDINGS TO SUGGEST OSTEOMYELITIS/DISCITIS. NO PARASPINAL ABSCESSES. NO APPRECIABLE EPIDURAL FLUID COLLECTIONS. IF THERE IS PERSISTENT CLINICAL CONCERN FOR EPIDURAL ABSCESS, CONTRAST ENHANCED MRI MAY BE MORE SENSITIVE.
[2017-07-21] MEDS: Nicotine Inhaler* 10 MG AMP INH PRN ×6 (00:02→19:43)
[2017-07-21] MEDS: NS 0.9% 1000 ML* 1,000 ML IV SCH ×3 (03:53→19:51)
[2017-07-21] MEDS: Levofloxacin 750 MG IVPREMIX(* 750 MG/150 ML BAG IVPB SCH (05:50)
[2017-07-21 06:40] LABS: ABS Basophils 0 10^3/ul (0-0.2); ABS Eosinophils 0.1 10^3/ul (0-0.6); ABS Lymphocytes 1.7 10^3/ul (1.0-4.8); ABS Monocytes 0.7 10^3/ul (0-0.8); ABS Neutrophils 2.8 10^3/ul (1.5-7.7); ABS Nucleated RBC 0 10^3/ul; Eosinophil % 1.8 % (0-6); Hematocrit 31 % (42-52); Hemoglobin 10.8 g/dl (14.0-18.0); Lymphocyte % 31.6 % (25-47); Mean Corpuscular HGB Conc 35 g/dl (31-36); Mean Corpuscular Hemoglobin 31 pg (27-31); Mean Corpuscular Volume 89 fL (80-94); Mean Platelet Volume 9 um3 (7.4-10.4); Nucleated Red Blood Cells % 0; Platelet Count 166 10^3/ul (150-450); Red Blood Count 3.49 10^6/ul (4.0-5.4); Red Cell Distribution Width 15 % (10.5-15); White Blood Count 5.3 10^3/ul (3.5-10.8)
[2017-07-21 07:01] LABS: EGFR Non-African American 118.6 (>60)
[2017-07-21] MEDS: Buprenorphine/Naloxone 8-2 MG SL TAB* 1 TAB PO SCH ×3 (08:59→20:40)
[2017-07-21] MEDS: Enoxaparin(*) 40 MG/0.4 ML SYR SUBCUT SCH (13:06)
--- NOTE | 2017-07-21 13:47 | PN ---
Subjective Date of Service: 07/21/17 Interval History: Patient denies abdominal pain. Eating well. He has less pain in legs, calf is painful on RT. Can now wiggle toes bilat. Reports episodic headache, new, along with hearing voices. Denies h/o migraine or hallucinations. Family History: Unchanged from Admission Social History: Unchanged from Admission Past Medical History: Unchanged from Admission Objective Active Medications: Acetaminophen (Tylenol Tab*) 650 mg PO Q4H PRN PRN Reason: FEVER/PAIN Buprenorphine/Naloxone (Suboxone 8-2 Mg Sl Tab*) 1 tab.sl PO TID [facility] Last Admin: 07/21/17 13:06 Dose: 1 tab.sl Device (Nicotine Mouth Piece*) 1 each INH .USE WITH NICOTROL PRN PRN Reason: CRAVING Last Admin: 07/20/17 19:20 Dose: 1 each Enoxaparin Sodium (Lovenox(*)) 40 mg SUBCUT Q24H [facility] Last Admin: 07/21/17 13:06 Dose: 40 mg Sodium Chloride (Ns 0.9% 1000 Ml*) 1,000 mls @ 150 mls/hr IV PER RATE [facility] Last Admin: 07/21/17 11:50 Dose: 150 mls/hr Nicotine (Nicotine Inhaler*) 10 mg INH Q2H PRN PRN Reason: CRAVING Last Admin: 07/21/17 13:09 Dose: 10 mg Vital Signs - 8 hr 07/21/17 07/21/17 07/21/17 07:23 08:59 09:06 Temperature 36.8 C Pulse Rate 81 Respiratory 16 18 18 Rate Blood Pressure 117/70 (mmHg) O2 Sat by Pulse 96 Oximetry Oxygen Devices in Use Now: None Appearance: alert, no distress Eyes: No Scleral Icterus Neck: NL Appearance and Movements; NL JVP Respiratory: Symmetrical Chest Expansion and Respiratory Effort Cardiovascular: NL Sounds; No Murmurs; No JVD Abdominal: NL Sounds; No Tenderness; No Distention, No Hepatosplenomegaly Extremities: No Edema, - - tender RT calf Neurological: Alert and Oriented x 3 Nutrition: Taking PO's Result Diagrams: 07/21/17 06:11 07/21/17 06:15 Diagnostic Imaging: CT abdo/pelvis NEG CT spine: no abscess RLE: no DVT Assess/Plan/Problems-Billing Assessment: 32 year old undomeciled man, presented w/ exposure, possible sepsis, now complaining of bilateral leg pain, inability to walk - Patient Problems (1) Leg pain, bilateral Current Visit: Yes Status: Acute Priority: High Code(s): M79.604 - PAIN IN RIGHT LEG; M79.605 - PAIN IN LEFT LEG SNOMED Code(s): 58382781 Comment: -leg pain resolving -I think this was withdrawal, after missing almost 24h of suboxone (2) Abdominal pain Current Visit: Yes Status: Acute Priority: Medium Code(s): R10.9 - UNSPECIFIED ABDOMINAL PAIN SNOMED Code(s): 76479790 Comment: -abdominal pain resolved. (3) Opioid dependence Current Visit: No Status: Acute Priority: Medium Code(s): F11.20 - OPIOID DEPENDENCE, UNCOMPLICATED SNOMED Code(s): 94761821 Comment: -restarted Suboxone, tolerating well (4) Sepsis Current Visit: Yes Status: Acute Priority: High Comment: - sepsis suspected, now resolved. - headache and hallucinations likely due to levaquin. - Will need MRI to rule out seizure focus, neoplasm (5) DVT prophylaxis Current Visit: Yes Status: Acute Priority: Low Code(s): OHG4697 - SNOMED Code(s): 716725755 Comment: -lovenox Status and Disposition: patient is homeless, needs safer discharge plan. SW consult pending
[2017-07-22] MEDS: Nicotine Inhaler* 10 MG AMP INH PRN ×2 (01:00→08:06)
[2017-07-22] MEDS: NS 0.9% 1000 ML* 1,000 ML IV SCH (01:59)
[2017-07-22] MEDS: Buprenorphine/Naloxone 8-2 MG SL TAB* 1 TAB PO SCH (08:06)
[2017-07-22 08:40] VITALS: BP 138/88
--- NOTE | 2017-07-22 08:55 | PN ---
Subjective Date of Service: 07/22/17 Interval History: Patient seen and examined at bedside. Denies fever, chills, headache, shortness of breath, chest discomfort, N/V/D, pain. Pt states that he feels well today and is requesting to be discharged. Family History: Unchanged from Admission Social History: Unchanged from Admission Past Medical History: Unchanged from Admission Objective Active Medications: Acetaminophen (Tylenol Tab*) 650 mg PO Q4H PRN Reason: FEVER/PAIN Buprenorphine/Naloxone (Suboxone 8-2 Mg Sl Tab*) 1 tab.sl PO TID BEATRIZ Device (Nicotine Mouth Piece*) 1 each INH .USE WITH NICOTROL PRNReason: CRAVING Enoxaparin Sodium (Lovenox(*)) 40 mg SUBCUT Q24H BEATRIZ Sodium Chloride (Ns 0.9% 1000 Ml*) 1,000 mls @ 150 mls/hr IV PER RATE BEATRIZ Nicotine (Nicotine Inhaler*) 10 mg INH Q2H PRN Reason: CRAVING Vital Signs - 8 hr 07/22/17 07/22/17 07/22/17 03:28 07:28 08:06 Temperature 98.3 F 98.3 F Pulse Rate 74 73 Respiratory 15 16 17 Rate Blood Pressure 136/85 138/88 (mmHg) O2 Sat by Pulse 100 97 Oximetry Oxygen Devices in Use Now: None Appearance: NAD, sitting up on the side of the bed Ears/Nose/Mouth/Throat: Mucous Membranes Moist Respiratory: Symmetrical Chest Expansion and Respiratory Effort, Clear to Auscultation Cardiovascular: NL Sounds; No Murmurs; No JVD, RRR Abdominal: NL Sounds; No Tenderness; No Distention Extremities: No Edema Skin: No Rash or Ulcers Neurological: Alert and Oriented x 3, NL Muscle Strength and Tone Lines/Tubes/Other Access: Clean, Dry and Intact Peripheral IV - site benign Nutrition: Taking PO's Result Diagrams: 07/21/17 06:11 07/21/17 06:15 Additional Lab and Data: Laboratory Tests 07/19/17 07/19/17 07/19/17 23:45 23:45 23:54 WBC 15.0 H Hgb 12.7 L Hct 37 L C-Reactive Protein 224.60 H Influenza A (Rapid) Negative Influenza B (Rapid) Negative Diagnostic Imaging: CT abdo/pelvis: NEG CT spine: no abscess RLE: no DVT Assess/Plan/Problems-Billing Assessment: Mr. Groves is a 32 year old undomeciled man, presented w/ exposure, possible sepsis, now complaining of bilateral leg pain,and inability to walk - Patient Problems (1) Leg pain, bilateral Code(s): M79.604 - PAIN IN RIGHT LEG; M79.605 - PAIN IN LEFT LEG SNOMED Code(s ): 85216215 Comment: - Leg pain resolved - Suspect this was withdrawal, after missing almost 24h of suboxone - LS CT - no abscess or cord compression (2) Abdominal pain Code(s): R10.9 - UNSPECIFIED ABDOMINAL PAIN SNOMED Code(s): 10872165 Comment: - Resolved - ABD/Pelvis CT without significant findings (3) Headache Code(s): R51 - HEADACHE SNOMED Code(s): 11647725 Comment: - Resolved - Headache and hallucinations likely due to levaquin - MRI pending (to rule out seizure focus, neoplasm), Pt declining MRI (4) Sepsis Comment: - Sepsis suspected on admission, now resolved. (5) Opioid dependence Status: Acute Priority: Medium Code(s): F11.20 - OPIOID DEPENDENCE, UNCOMPLICATED SNOMED Code(s): 01356184 Comment: - Continue Suboxone, tolerating well (6) DVT prophylaxis Code(s): ASG2295 - SNOMED Code(s): 434339643 Comment: - Lovenox (7) Full code status Code(s): Z78.9 - OTHER SPECIFIED HEALTH STATUS SNOMED Code(s): 840912098 Status and Disposition: Inpatient. Patient is homeless. SW consult pending. Stable for discharge to home today.
--- NOTE | 2017-07-23 15:58 | DS ---
CC: Dr. Kassandra Haley * DISCHARGE SUMMARY: DATE OF ADMISSION: 07/20/17 DATE OF DISCHARGE: 07/22/17 ATTENDING PHYSICIAN: Dr. Beata Tafoya * (dictated by Katherine Bourne NP). PRIMARY CARE PROVIDER: None. The patient does follow with Dr. Kassandra Haley for his Suboxone. PRIMARY DIAGNOSES: 1. Sepsis on admission unclear etiology, resolved. 2. Tachycardia, resolved. 3. Bilateral leg pain, resolved, suspect secondary to withdrawal. 4. Abdominal pain, resolved. 5. Headache, resolved. 6. Hyponatremia, resolved. 7. Transaminitis, resolved. SECONDARY DIAGNOSIS: Opioid dependence. STUDIES WHILE IN THE HOSPITAL: 1. Chest x-ray on 07/19/17. Radiologist's impression: No active cardiopulmonary disease. 2. Bilateral venous Doppler studies of the lower extremities on 07/20/17. Radiologist's impression: No right lower extremity deep vein thrombosis. The patient declined the evaluation of the left lower extremity. 3. Gallbladder ultrasound from 07/20/17. Radiologist's impression: Hepatomegaly with fatty infiltration of the liver. 4. Abdomen and pelvis CT on 07/20/17. Radiologist's impression: Hepatomegaly with fatty infiltration of the liver. Linear atelectasis of the right lung base. No appreciable hernia. 5. Lumbar spine CT on 07/20/17. Radiologist's impression: No findings to suggest osteomyelitis/diskitis. No paraspinal abscesses. No appreciable epidural fluid collections. If there is persistent clinical concern for epidural abscess, contrast-enhanced MRI may be more sensitive. DISCHARGE MEDICATIONS: Home medications: Suboxone 1 tablet sublingual 3 times daily. HISTORY OF PRESENT ILLNESS/HOSPITAL COURSE: Mr. Groves is a 32-year-old male with past medical history significant for polysubstance abuse, who was last admitted to the hospital with hallucinations in the setting of methamphetamine use, who presented to the hospital, left, and returned complaining of gordillo bite in his fingers. While in the emergency room, he was found to have fever with leukocytosis and tachycardia. The hospitalist services were asked to consult on the patient. During the patient's hospitalization, his suspected sepsis resolved. He was no longer meeting SIRS criteria and there was no etiology found for the sepsis that was present on admission. The patient's tachycardia resolved. He had influenza A and B that were negative. It was suspected the tachycardia was in the setting of fever. He had a gallbladder ultrasound showing a fatty infiltrate of the liver. He had an abdomen and pelvis CT showing again fatty infiltrate of the liver and linear atelectasis of the right lung base. No appreciable hernias. The patient was complaining of bilateral lower extremity pain. He had negative venous Doppler on the right, declined Doppler of the left. He had a lumbar spine CT showing no signs of diskitis, osteomyelitis, or an epidural abscess. The patient was complaining of headaches and had plans for an MRI on the morning of 07/22/17. This morning the patient states that all of his symptoms such as pain in his legs, headache have resolved and he would like to be discharged today stating he has an appointment. The patient states that he does not have primary care provider, but follows with Dr. Kassandra Haley for Suboxone. The patient is afebrile. Leukocytosis resolved. His hyponatremia resolved. His transaminitis resolved. The patient had reported hallucinations during his stay; it was suspected this was secondary to Levaquin. Mr. Groves is stable for discharge to home today. PHYSICAL EXAMINATION: Vital signs as follows: Temperature 98.3, heart rate 73 , respiratory rate 16, O2 sat 97% on room air, blood pressure 138/88. DISCHARGE PLAN: Mr. Groves will be discharged to home. Activity as tolerated. He can be on a regular diet. The patient has been encouraged to follow up with [facility], as he already follows with Dr. Haley. He will be continued on his Suboxone. The patient has been asked to return to the emergency room for any chest pain, shortness of breath. This is a summarized report of a complex medical history and hospital stay. For further details, please the entire medical record. TIME SPENT: Time for this discharge was approximately 50 minutes, greater than half of that was spent with the patient discussing discharge plans and instructions. CONDITION ON DISCHARGE: Stable. Reviewed by PAU CRUZ 08/02/17 [id number] [id number]/[facility] #: [id number] JACQUE
== END 2017-07-22 10:35 | disposition home or self-care (01) | DRG 425 ==
LOC: ED 21:49 → MED 07-20 02:42 → OBSVTOIN 07-21 12:52
PROVIDERS: ADMIT Internal Medicine; ATTEND Internal Medicine
DX: E87.1 Hypo-osmolality and hyponatremia (principal); F11.20 Opioid dependence, uncomplicated; M79.605 Pain in left leg; M79.604 Pain in right leg; R10.9 Unspecified abdominal pain; R51 Headache; D72.829 Elevated white blood cell count, unspecified; M10.9 Gout, unspecified; F17.210 Nicotine dependence, cigarettes, uncomplicated; Z88.0 Allergy status to penicillin; Z88.8 Allergy status to other drugs, medicaments and biological substances; Z83.49 Family history of other endocrine, nutritional and metabolic diseases; B19.20 Unspecified viral hepatitis C without hepatic coma
CPT/HCPCS: 36415; 71046; 72132; 74177; 76705; 80053; 80307; 81003; 81015; 82550; 83605; 85025; 85652; 86140; 87040; 87502; 93005; 99283; A9270-GY; G0378; J1650; Q9967

== ENCOUNTER 2017-08-09 06:04 | Emergency (ER) | payer OTHER ==
[2017-08-09 06:28] VITALS: BP 152/108
[2017-08-09 06:59] LABS: ABS Basophils 0.1 10^3/ul (0-0.2); ABS Eosinophils 0.1 10^3/ul (0-0.6); ABS Lymphocytes 1.4 10^3/ul (1.0-4.8); ABS Monocytes 0.8 10^3/ul (0-0.8); ABS Neutrophils 3.8 10^3/ul (1.5-7.7); ABS Nucleated RBC 0 10^3/ul; Hematocrit 42 % (42-52); Hemoglobin 14.1 g/dl (14.0-18.0); Lymphocyte % 23.2 % (25-47); Mean Corpuscular HGB Conc 34 g/dl (31-36); Mean Corpuscular Hemoglobin 29 pg (27-31); Mean Corpuscular Volume 87 fL (80-94); Mean Platelet Volume 8 um3 (7.4-10.4); Nucleated Red Blood Cells % 0.1; Platelet Count 200 10^3/ul (150-450); Red Cell Distribution Width 14 % (10.5-15); White Blood Count 6.1 10^3/ul (3.5-10.8)
--- NOTE | 2017-08-09 07:00 | ED ---
Vipin Elias Stephanie, scribed for Susan Layne MD on 08/09/17 at 0637 . Psychiatric Complaint - HPI Summary HPI Summary: Patient is a 32-year-old homeless male with a history of extensive IV drug use BIB police on a 941 call. The police is not present so ED and so medical personnel is unaware as to why the pt was brought into the hospital. He is currently taking Suboxone for heroin drug use. Pt states he has not taken any drugs today but he may have methamphetamine in his bloodstream. Per [place] [employer], pt denies SI and HI. The pt is not answering questions correctly and is not a good historian, resulting in a limited HPI. - History Of Current Complaint Chief Complaint: EDPsychosocial Time Seen by Provider: 08/09/17 06:05 Hx Obtained From: Patient Has Suicidal: Denies: Thoughts Has Homicidal: Denies: Thoughts - Allergies/Home Medications Allergies/Adverse Reactions: Allergies Allergy/AdvReac Type Severity Reaction Status Date / Time MS Trazodone [Trazodone] Allergy Severe See Comment Verified 10/08/16 06:55 MS Penicillin V Allergy Mild Hives Verified 10/08/16 06:55 [From Penicillin VK Potassium] MS Tramadol [Tramadol] Allergy Mild Hives Verified 10/08/16 06:55 MS Levofloxacin Allergy Hallucinati Verified 07/22/17 07:11 [Levofloxacin] ons PMH/Surg Hx/FS Hx/Imm Hx Endocrine/Hematology History: Denies: Hx Diabetes, Hx Thyroid Disease Cardiovascular History: Denies: Hx Hypertension Respiratory History: Reports: Hx Pneumonia, Other Respiratory Problems/ Disorders - Hx Pneumonia Denies: Hx Asthma, Hx Chronic Bronchitis, Hx Chronic Obstructive Pulmonary Disease (COPD) GI History: Denies: Hx Ulcer History: Reports: Hx Acute Renal Failure Denies: Hx Renal Disease Comment Only: Other Problems/Disorders - Hepatitis C Musculoskeletal History: Reports: Hx Back Problems, Hx Gout, Other Musculoskeletal History - head injury as child Denies: Hx Scoliosis Sensory History: Reports: Hx Contacts or Glasses, Hx Vision Problem, Other Sensory Impairments - Bilateral Myringetomy Denies: Hx Hearing Aid Opthamlomology History: Reports: Hx Contacts or Glasses, Hx Vision Problem, Other Sensory Impairments - Bilateral Myringetomy Neurological History: Denies: Hx Headaches, Other Neuro Impairments/Disorders Psychiatric History: Reports: Hx Depression, Hx Suicide Attempt, Other Psychiatric Issues/Disorders - polysubstance abuse Denies: Hx Eating Disorder, Hx of Violent Episodes Against Others - Surgical History Surgery Procedure, Year, and Place: Bilateral myringetomy - Immunization History Date of Tetanus Vaccine: pt states unsure Date of Influenza Vaccine: none Infectious Disease History: No Infectious Disease History: Reports: Hx Hepatitis - HCV, Hx of Known/Suspected MRSA Denies: Hx Clostridium Difficile, Hx Human Immunodeficiency Virus (HIV), Hx Shingles, Hx Tuberculosis, Hx Known/Suspected VRE, Hx Known/Suspected VRSA, History Other Infectious Disease, Traveled Outside the [place] in Last 30 Days - Family History Known Family History: Positive: Other - thyroid dz - Social History Occupation: Unemployed Alcohol Use: Daily Alcohol Amount: Couple beers a day Hx Substance Use: Yes Substance Use Type: Reports: Marijuana, Heroin, Other Substance Use Comment - Amount & Last Used: meth Smoking Status (MU): Heavy Every Day Tobacco Smoker Amount Used/How Often: 4 cigs per day Review of Systems - ROS Summary Review of Systems Summary: ROS limited due to pt's inability to answer questions. The pt denies any symptoms. All Other Systems Reviewed And Are Negative: No Physical Exam - Summary Physical Exam Summary: VITAL SIGNS: Reviewed. GENERAL: The pt is disheveled and has disorganized speech. He is not answering questions. He is a MALE who is lying comfortable in the stretcher. Patient is not in any acute respiratory distress. HEAD AND FACE: No signs of trauma. No ecchymosis, hematomas or skull depressions. No sinus tenderness. EYES: PERRLA, EOMI x 2, No injected conjunctiva, no nystagmus. EARS: Hearing grossly intact. Ear canals and tympanic membranes are within normal limits. MOUTH: Oropharynx within normal limits. NECK: Supple, trachea is midline, no adenopathy, no JVD, no carotid bruit, no c- spine tenderness, neck with full ROM. CHEST: Symmetric, no tenderness at palpation LUNGS: Clear to auscultation bilaterally. No wheezing or crackles. CVS: Regular rate and rhythm, S1 and S2 present, no murmurs or gallops appreciated. ABDOMEN: Soft, non-tender. No signs of distention. No rebound no guarding, and no masses palpated. Bowel sounds are normal. EXTREMITIES: FROM in all major joints, no cyanosis or clubbing. Bilateral UE edema. NEURO: Alert and oriented x 3. No acute neurological deficits. Speech is normal and follows commands. SKIN: Dry and warm Triage Information Reviewed: Yes Vital Signs On Initial Exam: Initial Vitals Temp Pulse Resp BP Pulse Ox 99.5 F 73 12 152/108 99 08/09/17 06:12 08/09/17 06:12 08/09/17 06:12 08/09/17 06:12 08/09/17 06:12 Vital Signs Reviewed: Yes Diagnostics - Vital Signs Vital Signs Temp Pulse Resp BP Pulse Ox 08/09/17 06:12 99.5 F 73 12 152/108 99 - Laboratory Lab Statement: Any lab studies that have been ordered have been reviewed, and results considered in the medical decision making process. Course/Dx - Course Course Of Treatment: Patient is a 32-year-old homeless male with a history of extensive IV drug use BIB police on a 941 call. - Differential Dx/Clinical Impression Provider Diagnosis: Substance abuse Discharge - Discharge Plan Condition: Stable Disposition: OTHER Discharge Disposition Comment: The pt is a sign out to Dr. Maynard at shift change pending labs and dispo. The documentation as recorded by the [place] Stephanie accurately reflects the service I personally performed and the decisions made by me, Susan Layne MD.
[2017-08-09 07:15] LABS: EGFR Non-African American 120.4 (>60)
[2017-08-09 07:22] LABS: Urine Appearance Cloudy; Urine Blood Negative (Negative); Urine Color Amber; Urine Ketones Trace (Negative); Urine Protein 1+(30 mg/dL) (Negative); Urine Specific Gravity 1.029 (1.010-1.030); Urine Urobilinogen Positive (Negative)
[2017-08-09] MEDS ORDERED: Potassium Chlor TAB* 20 MEQ TAB.ER PO ONE (07:24)
--- NOTE | 2017-08-09 09:37 | RAD ---
Indication: Elevated liver enzymes. Real-time sonography of the abdomen was performed. Liver measures 16.9 cm in length. No focal lesions or intrahepatic ductal dilatation is noted. The gallbladder demonstrates no gallstones, pericholecystic fluid or wall thickening. The common duct measures 6 mm. Right kidney measures 11.6 x 5.1 x 6.7 cm with no hydronephrosis. The pancreas is not well visualized due to overlying gas. Aorta and inferior vena cava are unremarkable. IMPRESSION: No evidence of cholelithiasis or biliary duct dilatation is noted.
--- NOTE | 2017-08-09 18:19 | ED ---
Klaudia Elias Thomas, scribed for Damian Maynard MD on 08/09/17 at 0744 . Progress - Progress Note Progress Note: The patient is a 33 year old male signed out from Dr. Layne, pending mental health evaluation and awaiting disposition. The patient says that he was brought here because director of front office thought I was being crazy. He agrees to cooperate with a mental health examination. PHYSICAL EXAM: VITAL SIGNS: Reviewed. GENERAL: Patient is a well-developed and nourished male is lying comfortable in the stretcher. He is in poor hygiene. Patient is not in any acute respiratory distress. HEAD AND FACE: No signs of trauma. ~No ecchymosis, hematomas or skull depressions. No sinus tenderness. EYES: PERRLA, EOMI x 2, No injected conjunctiva, no nystagmus. EARS: Hearing grossly intact. Ear canals and tympanic membranes are within normal limits. MOUTH: Oropharynx within normal limits. NECK: Supple, trachea is midline, no adenopathy, no JVD, no carotid bruit, no c- spine tenderness, neck with full ROM. CHEST: Symmetric, no tenderness at palpation LUNGS: Clear to auscultation bilaterally. No wheezing or crackles. CVS: Regular rate and rhythm, S1 and S2 present, no murmurs or gallops appreciated. ABDOMEN: Soft, non-tender. No signs of distention. No rebound no guarding, and no masses palpated. Bowel sounds are normal. EXTREMITIES: FROM in all major joints, no edema, no cyanosis or clubbing. NEURO: Alert and oriented x 3. No acute neurological deficits. Speech is normal and follows commands. SKIN: Dry and warm PSYCH: He is in poor hygiene. Depressed, quiet, and denies any suicidal thoughts or plan. No homicidal thoughts or plan. No signs of psychosis or pressure speech. No tangential speech. Ultrasound Abdomen Interpreted by radiologist. Impression: No evidence of cholelithiasis or biliary duct dilation is noted. Dr. Maynard has reviewed this report. ASSESSMENT AND PLAN: The patient was signed out from Dr. Layne awaiting medical clearance. Bloodwork was within normal limits except for increased LFTs, secondary to chronic hepatitis C. Ultrasound abdomen shows no evidence of cholelithiasis or biliary duct dilation is noted. At this point, the patient is medically cleared. Dr. Ordonez reviewed the case and he will discharge the patient. Condition: stable Disposition: D/C home Course/Dx - Diagnoses Provider Diagnoses: Mood disorder, unspecified - Provider Notifications Discussed Care Of Patient With: Silvestre Ordonez Time Discussed With Above Provider: 08:00 Instructed by Provider To: Other - Dr. Ordonez, psychiatry, will discharge the patient. The documentation as recorded by the [place] Thomas accurately reflects the service I personally performed and the decisions made by Caesar valadez Walter, MD.
== END 2017-08-09 10:32 ==
LOC: ED 06:04
DX: F11.10 Opioid abuse, uncomplicated (principal); F17.210 Nicotine dependence, cigarettes, uncomplicated; Z88.3 Allergy status to other anti-infective agents; Z88.5 Allergy status to narcotic agent; Z88.0 Allergy status to penicillin; Z88.8 Allergy status to other drugs, medicaments and biological substances
CPT/HCPCS: 36415; 76705; 80053; 80074; 80307; 80320; 80329; 81003; 81015; 82550; 84443; 85025; 99284; A9270-GY; G0480

== ENCOUNTER 2017-08-10 02:12 | Emergency (ER) | payer OTHER ==
[2017-08-10 03:52] LABS: ABS Basophils 0 10^3/ul (0-0.2); ABS Eosinophils 0.2 10^3/ul (0-0.6); ABS Lymphocytes 2.4 10^3/ul (1.0-4.8); ABS Monocytes 1.1 10^3/ul (0-0.8); ABS Neutrophils 3.7 10^3/ul (1.5-7.7); ABS Nucleated RBC 0 10^3/ul; Hematocrit 42 % (42-52); Hemoglobin 13.8 g/dl (14.0-18.0); Lymphocyte % 32.4 % (25-47); Mean Corpuscular HGB Conc 33 g/dl (31-36); Mean Corpuscular Hemoglobin 29 pg (27-31); Mean Corpuscular Volume 88 fL (80-94); Mean Platelet Volume 8 um3 (7.4-10.4); Nucleated Red Blood Cells % 0; Platelet Count 221 10^3/ul (150-450); Red Blood Count 4.72 10^6/ul (4.0-5.4); Red Cell Distribution Width 14 % (10.5-15); White Blood Count 7.5 10^3/ul (3.5-10.8)
[2017-08-10 04:03] LABS: EGFR Non-African American 124.2 (>60)
[2017-08-10 04:08] LABS: INR 1.04 (0.77-1.02)
--- NOTE | 2017-08-10 06:06 | ED ---
Marin Elias Tecjoon, scribed for Susan Layne MD on 08/10/17 at 0259 . Complex/Multi-Sys Presentation - HPI Summary HPI Summary: This patient is a 32 year old male BIBA to [facility] with a chief complaint of doesnt feel good since earlier today. Patient states that his liver hurts and that he is seeing spots. Patient was in ED yesterday, was given US, and states they basically told me I was gonna . The pain is rated 5/10 in severity. Symptoms aggravated by nothing. Symptoms alleviated by nothing. Patient additionally reports blurred vision, chills, liver pain. Patient denies SI, HI. - History Of Current Complaint Chief Complaint: EDGeneral Time Seen by Provider: 08/10/17 02:15 Hx Obtained From: Patient Onset/Duration: Still Present Timing: Constant Severity Currently: Moderate Severity Initially: Moderate Location: Pain At: - liver Aggravating Factor(s): nothing Alleviating Factor(s): nothing Associated Signs And Symptoms: Positive: Other - blurred vision, chills, liver pain - Allergies/Home Medications Allergies/Adverse Reactions: Allergies Allergy/AdvReac Type Severity Reaction Status Date / Time trazodone Allergy Severe Suicidal Verified 08/09/17 13:40 Thoughts Penicillins Allergy Mild Hives Verified 08/09/17 13:40 tramadol Allergy Mild Hives Verified 08/09/17 13:40 levofloxacin Allergy Hallucinati Verified 08/09/17 13:40 ons PMH/Surg Hx/FS Hx/Imm Hx Previously Healthy: No Endocrine/Hematology History: Denies: Hx Diabetes, Hx Thyroid Disease Cardiovascular History: Denies: Hx Hypertension Respiratory History: Reports: Hx Pneumonia, Other Respiratory Problems/ Disorders - Hx Pneumonia Denies: Hx Asthma, Hx Chronic Bronchitis, Hx Chronic Obstructive Pulmonary Disease (COPD) GI History: Denies: Hx Ulcer History: Reports: Hx Acute Renal Failure Denies: Hx Renal Disease Comment Only: Other Problems/Disorders - Hepatitis C Musculoskeletal History: Reports: Hx Back Problems, Hx Gout, Other Musculoskeletal History - head injury as child Denies: Hx Scoliosis Sensory History: Reports: Hx Contacts or Glasses, Hx Vision Problem, Other Sensory Impairments - Bilateral Myringetomy Denies: Hx Hearing Aid Opthamlomology History: Reports: Hx Contacts or Glasses, Hx Vision Problem, Other Sensory Impairments - Bilateral Myringetomy Neurological History: Denies: Hx Headaches, Other Neuro Impairments/Disorders Psychiatric History: Reports: Hx Depression, Hx Suicide Attempt, Other Psychiatric Issues/Disorders - polysubstance abuse Denies: Hx Eating Disorder, Hx of Violent Episodes Against Others - Surgical History Surgery Procedure, Year, and Place: Bilateral myringetomy - Immunization History Date of Tetanus Vaccine: pt states unsure Date of Influenza Vaccine: none Infectious Disease History: No Infectious Disease History: Reports: Hx Hepatitis - HCV, Hx of Known/Suspected MRSA Denies: Hx Clostridium Difficile, Hx Human Immunodeficiency Virus (HIV), Hx Shingles, Hx Tuberculosis, Hx Known/Suspected VRE, Hx Known/Suspected VRSA, History Other Infectious Disease, Traveled Outside the [place] in Last 30 Days - Family History Known Family History: Positive: Other - thyroid dz Negative: Hypertension - Social History Alcohol Use: Daily Alcohol Amount: Couple beers a day Hx Substance Use: Yes Substance Use Type: Reports: Heroin, Marijuana, Other - meth Hx Tobacco Use: Yes Smoking Status (MU): Heavy Every Day Tobacco Smoker Amount Used/How Often: 4 cigs per day Review of Systems Positive: Chills. Negative: Fever Positive: Blurred Vision Positive: Other - liver pain Positive: Other - Negative - SI, HI All Other Systems Reviewed And Are Negative: Yes Physical Exam - Summary Physical Exam Summary: VITAL SIGNS: Reviewed. GENERAL: Patient is a well-developed and nourished male who is lying comfortable in the stretcher. Patient is not in any acute respiratory distress. HEAD AND FACE: No signs of trauma. No ecchymosis, hematomas or skull depressions. No sinus tenderness. EYES: PERRLA, EOMI x 2, No injected conjunctiva, no nystagmus. EARS: Hearing grossly intact. Ear canals and tympanic membranes are within normal limits. MOUTH: Oropharynx within normal limits. NECK: Supple, trachea is midline, no adenopathy, no JVD, no carotid bruit, no c- spine tenderness, neck with full ROM. CHEST: Symmetric, no tenderness at palpation LUNGS: Clear to auscultation bilaterally. No wheezing or crackles. CVS: Regular rate and rhythm, S1 and S2 present, no murmurs or gallops appreciated. ABDOMEN: Soft, non-tender. No signs of distention. No rebound no guarding, and no masses palpated. Bowel sounds are normal. EXTREMITIES: FROM in all major joints, no edema, no cyanosis or clubbing. NEURO: Alert and oriented x 3. No acute neurological deficits. Speech is normal and follows commands. SKIN: Dry and warm Triage Information Reviewed: Yes Vital Signs On Initial Exam: Initial Vitals Temp Pulse Resp BP Pulse Ox 96.5 F 77 15 148/92 98 08/10/17 02:12 08/10/17 02:12 08/10/17 02:12 08/10/17 02:12 08/10/17 02:12 Vital Signs Reviewed: Yes Diagnostics - Vital Signs Vital Signs Temp Pulse Resp BP Pulse Ox 08/10/17 02:12 96.5 F 77 15 148/92 98 - Laboratory Result Diagrams: 08/10/17 02:55 08/10/17 02:55 Lab Statement: Any lab studies that have been ordered have been reviewed, and results considered in the medical decision making process. Complex Multi-Symp Course/Dx Course Of Treatment: This patient is a 32 year old male BIBA to [facility] with a chief complaint of doesnt feel good since earlier today. Patient states that his liver hurts and that he is seeing spots. Bloodwork Obtained. Urinalysis Obtained. In the ED course the patient was given Lactulose. Patient will be diagnosed with Hepatitis C and discharged with prescription for laculose. Patient is advised to follow up with Dr. Tapia (GI) in 3 days. The patient is agreeable with this plan. - Diagnoses Provider Diagnoses: Hepatitis C Discharge - Discharge Plan Condition: Stable Disposition: HOME Prescriptions: Lactulose 480 ML BTL* 30 ml PO BID #1 bottle Patient Education Materials: Hepatitis C (ED) Referrals: No Primary Care Phys,NOPCP [Primary Care Provider] - [facility] [place] [facility] [Outside] - 3 Days Darien Tapia MD [Medical Doctor] - 3 Days Additional Instructions: Use medication as instructed Return to the ED for any new or worsening symptoms. The documentation as recorded by the [place] Tecjoon accurately reflects the service I personally performed and the decisions made by Roverto valadez Abdul, MD.
[2017-08-10 06:50] VITALS: BP 0/0
== END 2017-08-10 06:56 | disposition home or self-care (01) ==
LOC: ED 02:12
DX: B19.20 Unspecified viral hepatitis C without hepatic coma (principal); F17.210 Nicotine dependence, cigarettes, uncomplicated; Z88.3 Allergy status to other anti-infective agents; Z88.5 Allergy status to narcotic agent; Z88.0 Allergy status to penicillin
CPT/HCPCS: 36415; 80053; 80320; 80329; 82140; 84443; 85025; 85610; 85730; 99283; G0480

== ENCOUNTER 2019-03-18 15:55 | Emergency (ER) | payer OTHER ==
[2019-03-18] MEDS ORDERED: Ibuprofen TAB* 600 MG PO ONE (16:36)
[2019-03-18 18:02] VITALS: BP 156/100
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
== END 2019-03-18 17:53 | disposition home or self-care (01) ==
LOC: ED 15:55
DX: S02.671A Fracture of alveolus of right mandible, initial encounter for closed fracture (principal); W22.8XXA Striking against or struck by other objects, initial encounter; Y92.9 Unspecified place or not applicable; F32.9 Major depressive disorder, single episode, unspecified; F17.210 Nicotine dependence, cigarettes, uncomplicated; Z79.891 Long term (current) use of opiate analgesic; Z88.1 Allergy status to other antibiotic agents; Z88.5 Allergy status to narcotic agent; Z88.0 Allergy status to penicillin; Z88.8 Allergy status to other drugs, medicaments and biological substances
CPT/HCPCS: 70486; 99282; A9270-GY

== ENCOUNTER 2019-03-23 17:25 | Inpatient (IN) | payer OTHER ==
[2019-03-23] MEDS ORDERED: NS 0.9% 1000 ML** 1,000 ML IV.FLUID IV ONE (17:50)
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
[2019-03-23 18:53] LABS: ABS Basophils 0.1 10^3/ul (0-0.2); ABS Lymphocytes 1.3 10^3/ul (1.0-4.8); ABS Monocytes 1.1 10^3/ul (0-0.8); ABS Neutrophils 10.8 10^3/ul (1.5-7.7); Eosinophil % 0.2 %; Hematocrit 44 % (42-52); Lymphocyte % 9.5 %; Mean Corpuscular HGB Conc 34 g/dL (31-36); Mean Corpuscular Hemoglobin 31 pg (27-31); Mean Corpuscular Volume 89 fL (80-94); Mean Platelet Volume 7.8 fL (7.4-10.4); Platelet Count 133 10^3/uL (150-450); Red Blood Count 4.89 10^6 /uL (4.18-5.48); Red Cell Distribution Width 14 % (10-15); White Blood Count 13.3 10^3/uL (3.5-10.8)
[2019-03-23 19:08] LABS: Acetaminophen < 15 mcg/mL; Alcohol < 10 mg/dL (<10); Salicylate < 2.50 mg/dL (<30)
[2019-03-23 19:10] LABS: ALT 35 U/L (7-52); AST 43 U/L (13-39); Albumin 4.2 g/dL (3.2-5.2); Albumin/Globulin Ratio 1.2 (1-3); Alkaline Phosphatase 115 U/L (34-104); Anion Gap 14 mmol/L (2-11); BUN/Creatinine Ratio 11.3 (8-20); Blood Urea Nitrogen 12 mg/dL (6-24); CO2 Carbon Dioxide 24 mmol/L (22-32); Calcium 9.4 mg/dL (8.6-10.3); Chloride 93 mmol/L (101-111); Creatine Kinase 169 U/L (10-223); EGFR African American 98.6 (>60); EGFR Non-African American 81.5 (>60); Globulin 3.6 g/dL (2-4); Glucose 89 mg/dL (70-100); Magnesium 1.5 mg/dL (1.9-2.7); Potassium 3.8 mmol/L (3.5-5.0); Sodium 131 mmol/L (135-145); Total Protein 7.8 g/dL (6.4-8.9); Troponin I 0.01 ng/mL (<0.04)
[2019-03-23] MEDS ORDERED: cefTRIAXone(*) 1 GM in NS 0.9% 50 ML* 50 ML IVPB ONE (19:12)
[2019-03-23] MEDS ORDERED: Magnesium Sulfate 1 GM IV* 1 GM/100 ML BAG IV ONE (19:12)
[2019-03-23] MEDS ORDERED: cefTRIAXone(*) 1 GM ADVAN/BAG ONE (19:17)
[2019-03-23 19:23] LABS: TSH (Thyroid Stimulating Horm) 4.47 mcIU/mL (0.34-5.60)
[2019-03-23 20:54] LABS: Urine Appearance Cloudy; Urine Bacteria Absent (Absent); Urine Bilirubin Negative (Negative); Urine Blood 1+ (Negative); Urine Color Amber; Urine Glucose Negative (Negative); Urine Ketones 1+ (Negative); Urine Nitrite Negative (Negative); Urine Protein 2+(100 mg/dL) (Negative); Urine Red Blood Cell 1+(3-5/hpf) (Absent); Urine Specific Gravity 1.017 (1.010-1.030); Urine Squamous Epithelial Cell Present (Absent); Urine Urobilinogen Negative (Negative); Urine White Blood Cell 1+(6-10/hpf) (Absent)
[2019-03-23 21:01] LABS: Urine Benzodiazepine Screen Presumptive Positive (None Detect); Urine Opiates Screen None Detected (None Detect)
[2019-03-23] MEDS ORDERED: Lorazepam PYXIS KEY PRN (22:18)
[2019-03-23] MEDS: LORazepam INJ* 2 MG/ML 1 ML VIAL IV PUSH PRN (22:26)
[2019-03-23] MEDS ORDERED: NS 0.9% w/ 20 Meq KCL 1000 ML* 1,000 ML IV SCH (23:00)
[2019-03-24] MEDS: Ketorolac INJ* 15 MG/ML 1 ML VIAL IV PUSH PRN ×2 (08:38→18:16)
[2019-03-24] MEDS: Nicotine PATCH 21 MG/24 HR* PATCH TRANSDERM SCH (08:38)
[2019-03-24] MEDS: Buprenorp/Nalox 8-2 MG FILM SL FILM SCH ×2 (08:39→20:41)
[2019-03-24 09:04] LABS: ABS Basophils 0.1 10^3/ul (0-0.2); ABS Eosinophils 0.3 10^3/ul (0-0.6); ABS Lymphocytes 1.6 10^3/ul (1.0-4.8); ABS Monocytes 0.5 10^3/ul (0-0.8); Eosinophil % 4.2 %; Hematocrit 41 % (42-52); Hemoglobin 13.9 g/dL (14.0-18.0); Lymphocyte % 21.5 %; Mean Corpuscular HGB Conc 34 g/dL (31-36); Mean Corpuscular Hemoglobin 31 pg (27-31); Mean Corpuscular Volume 90 fL (80-94); Platelet Count 124 10^3/uL (150-450); Red Blood Count 4.55 10^6 /uL (4.18-5.48); Red Cell Distribution Width 14 % (10-15); White Blood Count 7.4 10^3/uL (3.5-10.8)
[2019-03-24 09:29] LABS: Calcium 8.7 mg/dL (8.6-10.3); EGFR African American 105.5 (>60); EGFR Non-African American 87.2 (>60); Potassium 3.4 mmol/L (3.5-5.0)
[2019-03-24] MEDS: LORazepam INJ* 2 MG/ML 1 ML VIAL IV PUSH PRN ×2 (09:47→20:42)
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
[2019-03-24] MEDS ORDERED: Potassium Chlor TAB* 20 MEQ TAB.ER PO ONE (13:50)
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
[2019-03-24 14:29] LABS: Urine Benzodiazepine Screen Presumptive Positive (None Detect); Urine Opiates Screen None Detected (None Detect)
[2019-03-24 16:51] LABS: Urine Benzodiazepine Screen Presumptive Positive (None Detect); Urine Opiates Screen None Detected (None Detect)
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
[2019-03-24] MEDS: cefTRIAXone(*) 1 GM in NS 0.9% 50 ML* 50 ML IVPB SCH (18:09)
[2019-03-24 18:39] LABS: C Reactive Protein 111.01 mg/L (<8.01); Calcium 8.8 mg/dL (8.6-10.3); EGFR African American 119.1 (>60); EGFR Non-African American 98.4 (>60); Potassium 3.9 mmol/L (3.5-5.0)
[2019-03-24] MEDS: Nicotine Patch Removal NOTE FOLLOW UP SCH (21:00)
[2019-03-24] MEDS: Nicotine Lozenge* mini 4 MG LOZNG.MINI MT PRN (23:46)
[2019-03-25] MEDS: Ketorolac INJ* 15 MG/ML 1 ML VIAL IV PUSH PRN ×3 (03:36→17:22)
[2019-03-25] MEDS: LORazepam INJ* 2 MG/ML 1 ML VIAL IV PUSH PRN ×3 (03:47→20:42)
[2019-03-25 07:43] LABS: BUN/Creatinine Ratio 19.5 (8-20); Calcium 8.9 mg/dL (8.6-10.3); EGFR African American 132.6 (>60); EGFR Non-African American 109.6 (>60); Potassium 4.2 mmol/L (3.5-5.0)
[2019-03-25] MEDS: Buprenorp/Nalox 8-2 MG FILM SL FILM SCH ×2 (09:37→20:27)
[2019-03-25] MEDS: Nicotine PATCH 21 MG/24 HR* PATCH TRANSDERM SCH (09:37)
--- NOTE | 2019-03-25 10:48 | CONSULT ---
Consult Consult: Please see dictated note for further detail Patient was seen at bedside today for consult to rule out bilateral MTP septic arthritis. He has gout flares roughly 1x/ year. He reports no feeling of fever or chills. His MTPs are mildly painful at baseline and he has had no increase in pain of these joints. He is able to bear weight and able to wiggle toes without complaint of pain. He is an IV methamphetamine user, he has never inject into or between the toes. He does inject into the foot but has not in one months time. On exam there is minimal erythema of the left great toe and MTP. There is no erythema of the right MTP. He has minimal tenderness to palpation over bilateral MTPs with palpation. Full nonpainful active and passive MTP ROM with minimal pain. Gout is the most likely diagnosis. Very low likelihood of bilateral septic MTP joints. He has good nonpainful ROM at these joints and remains afebrile. I would recommend treatment for gout with antiinflammatory medications. Should he develop inability to bear weight or pain with ROM of the MTPs please alert orthopedics for further evaluation. Will follow his exam while in house.
--- NOTE | 2019-03-25 12:15 | CONS ---
CONSULTATION REPORT: DATE OF CONSULT: 03/25/19 ATTENDING ORTHOPEDIC PROVIDER: Dr. August Sher. CHIEF COMPLAINT: Bilateral MTP pain. HISTORY OF PRESENT ILLNESS: The patient is a 33-year-old male who we've been asked to see to rule out bilateral MTP septic joints. He has a history of gout as well as polysubstance abuse, admitting to methamphetamine and alcohol. Today, the patient reports that his MTP joints are minimally painful, which is baseline. He has no increase in pain in the MTP joints compared to his normal state of health. He does have a history of gout, and has flares roughly once per year. He reports that this could be beginning of a gout flare, he has had no fever, chills. He has been able to continue bearing weight as he normally does and has no pain when he wiggles his toes. He is an IV drug user with use of methamphetamine both smoked and injected, though denies any history of injecting into the toes or into the web spaces. He does inject into his feet but he has not done so in at least 1 month. He also abuses alcohol, he drinks ten 10% alcohol 40s per day. Additionally noted during this visit the patient has cellulitis possible abscess of the right arm as well as the left lower leg , for which General Surgery has been consulted. He also has a right mandibular fracture. PAST MEDICAL HISTORY: Includes hepatitic C, gout, polysubstance abuse, hypertension, history of suicide attempt. PAST SURGICAL HISTORY: Bilateral myringotomy. MEDICATIONS ON ADMISSION: 1. Suboxone 8/2 mg sublingual t.i.d. 2. Gabapentin 300 mg t.i.d. 3. Claritin D as needed. ALLERGIES: TRAZODONE, PENICILLIN, TRAMADOL, LEVOFLOXACIN. FAMILY HISTORY: Mother, father, brother, and sister alive and well. SOCIAL HISTORY: The patient is disabled. He is with 3 children, smokes a pack cigarettes per day, drinks ten 40s per day. Drug abuse includes injection and inhalation of methamphetamine. Last use within the week. REVIEW OF SYSTEMS: General: The patient denies any fever, chills, or recent illness. HEENT: Confirms jaw pain with a known right mandibular fracture. Cardiac: Denies any chest pain. Respiratory: Denies any shortness of breath. GI: Denies nausea, vomiting, diarrhea. Musculoskeletal: Denies any upper extremity pain or lower extremity pain. Denies any pain of his MTP joint, feet or toes. Neuro: Denies any decreased sensation of his extremities. PHYSICAL EXAM: The patient is in no acute distress. He appears to be quite sedated. He answers my questions, though is not clear on timeline. Vital Signs : Temperature 97.6, heart rate 76, respiratory rate 16, oxygen saturation 97% on room air, blood pressure 143/87. HEENT: Head appears normocephalic, atraumatic. Lungs: Respiratory rate, normal rate and effort of respiration. Abdomen: Nondistended. Extremities: Right upper extremities with cellulitis of the medial aspect of the elbow/ proximal forearm, area of erythema spans roughly 5 x 9 cm. There is some induration here but no fluctuance. There is no active drainage. There is full active range of motion at the elbow without pain, able to flex and extend digits, wrist, and shoulder well without pain also. Left upper extremity is nontender. Skin envelop is intact. There are sclerosed track singh in the antecubital fossa. He is able to flex and extend his digits, wrist, elbow, and shoulder without pain. Lower extremities: right lower extremity skin envelop intact. Able to flex and extend the ankle, knee, and hip without pain. Left lower extremity, there is an area of erythema roughly 5 cm on the medial calf. This is indurated. There is no drainage. He is able to flex and extend at ankle, knee, and hip without pain. The left MTP and great toe with minimal erythema, no erythema of the right MTP or great toe. There is minimal tenderness over bilateral MTPs without any fluctuance or warmth. Bilateral MTPs he is able to flex and extend fully both passively and actively with minimal pain. DIAGNOSTIC STUDIES/LAB DATA: White blood cell count 7.4 yesterday, repeat lab ordered today, CRP 67 today ASSESSMENT: Gout is the most likely diagnosis. There is very low likelihood of bilateral septic MTP joint. The patient has full nonpainful range of motion of these joints with minimal pain. He remains afebrile and CRP is trending down today. PLAN: Would recommend treatment with antiinflammatories for gout. Should the patient develop inability to bear weight or pain with range of motion of MTPs, please alert Orthopedics for further evaluation. We will continue to follow his exam while in-house. Discussed his case with Dr. August Sher who agrees with the assessment and plan. General surgery has been consulted for eval of cellulitis/ soft tissue abscess. There does not seem to be any joint involvement of the right elbow, if concern arises please reach out to orthopedics. DESI COOPER, KRIS [id number]/[facility] #: [id number] JACQUE
[2019-03-25 13:54] LABS: C Reactive Protein 67.64 mg/L (<8.01)
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
[2019-03-25 15:03] LABS: ABS Eosinophils 0.3 10^3/ul (0-0.6); ABS Monocytes 0.4 10^3/ul (0-0.8); ABS Neutrophils 3.8 10^3/ul (1.5-7.7); Eosinophil % 4.7 %; Hematocrit 39 % (42-52); Hemoglobin 13.1 g/dL (14.0-18.0); Lymphocyte % 18.7 %; Mean Corpuscular HGB Conc 34 g/dL (31-36); Mean Corpuscular Hemoglobin 30 pg (27-31); Mean Corpuscular Volume 91 fL (80-94); Platelet Count 139 10^3/uL (150-450); Red Blood Count 4.29 10^6 /uL (4.18-5.48); Red Cell Distribution Width 14 % (10-15); White Blood Count 5.5 10^3/uL (3.5-10.8)
[2019-03-25] MEDS ORDERED: chlordiazePOXIDE CAP* 5 MG PO ONE (15:20)
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
[2019-03-25] MEDS ORDERED: Lidocaine PATCH 5%* 1 PATCH TRANSDERM PRN (17:55)
[2019-03-25] MEDS: cefTRIAXone(*) 1 GM in NS 0.9% 50 ML* 50 ML IVPB SCH (17:56)
[2019-03-25] MEDS ORDERED: hydrALAZINE IV* 20 MG/ML VIAL IV SLOW PU PRN (18:59)
[2019-03-25] MEDS: Acetaminophen TAB* 325 MG PO PRN (20:26)
[2019-03-25] MEDS: Nicotine Lozenge* mini 4 MG LOZNG.MINI MT PRN ×2 (20:41→23:28)
[2019-03-25] MEDS: Lidocaine Patch REMOVE* 1 NOTE MISC SCH ×2 (20:46→20:48)
[2019-03-25] MEDS: Nicotine Patch Removal NOTE FOLLOW UP SCH (20:47)
[2019-03-25] MEDS ORDERED: Naproxen TAB* 250 MG PO PRN (21:00)
[2019-03-26] MEDS: LORazepam INJ* 2 MG/ML 1 ML VIAL IV PUSH PRN ×2 (03:55→10:00)
[2019-03-26] MEDS: Nicotine Lozenge* mini 4 MG LOZNG.MINI MT PRN ×2 (03:55→14:47)
[2019-03-26] MEDS: Acetaminophen TAB* 325 MG PO PRN ×2 (03:59→09:59)
[2019-03-26] MEDS ORDERED: Lisinopril TAB* 5 MG PO SCH (09:00)
[2019-03-26] MEDS: Nicotine PATCH 21 MG/24 HR* PATCH TRANSDERM SCH (09:44)
[2019-03-26] MEDS: Buprenorp/Nalox 8-2 MG FILM SL FILM SCH (09:45)
[2019-03-26] MEDS ORDERED: Naproxen TAB* 250 MG PO SCH (12:00)
--- NOTE | 2019-03-26 14:17 | TRS ---
TRANSFER SUMMARY: DATE OF ADMISSION: 03/24/19 DATE OF TRANSFER: 03/26/19 ATTENDING PHYSICIAN WHILE IN THE HOSPITAL: Dr. Blade Lin * (dictated by KRIS Qureshi) CONSULTING NEUROLOGIST: Dr. Bueno. CONSULTING ORTHOPEDIST: Dr. Sher. PRIMARY CARE PROVIDER: Kassandra Haley MD PRIMARY DIAGNOSES: 1. Multiple mandibular fractures, initially found on 03/18/19. 2. Gout flare. 3. Cellulitis secondary to IV methamphetamine injection site. 4. 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 SECONDARY DIAGNOSES: 1. Polysubstance use disorder. 2. Hypertension, not on antihypertensive at home. STUDIES: Maxillofacial CT on 03/18/19, impression: Nondisplaced mandibular fractures including the right mandibular body extending to the alveolar ridge with associated fracture of the right first mandibular molar at the root and left mandibular ramus. Brain MRI on 03/24/19, impression: Normal noncontrast brain MRI. Head and neck MRA on 03/24/19, impression: Normal brain MRA. Soft tissue ultrasound on 03/24/19, edema of the right medial elbow and left calf consistent with cellulitis in the correct clinical setting. There is a 2.6 cm fluid collection at the left calf concerning for small abscess. PERTINENT LAB DATA: White blood cell count at admission 13.3, white blood cell count on 03/24/19 of 7.4. Urine toxicology positive for methamphetamines, cocaine, and cannabinoids. HISTORY OF PRESENT ILLNESS/HOSPITAL COURSE: Brandon Groves is a 33-year-old white male with past medical history significant for polysubstance use, hepatitis C, gout, and hypertension, who presents to the emergency department via EMS due to altered mental status. For further information, please see the admitting history and physical written by Dr. Chin Reed. Of note, the patient was discharged from our emergency department on 03/19/19 at 9 a.m. with [facility] and they would be able to see him regarding his mandibular fractures. However, the patient did not followup. The patient had head trauma 2 days prior to his presentation to the emergency department and was then found in the emergency department during that visit to have multiple mandibular fractures as noted above. During this current hospitalization, the patient's altered mental status resolved by the following day of admission, this was deemed likely secondary to his substance abuse, but other pathologies were considered on the differential. Brain MRI and MRA of the head and neck were completed without any abnormality. The patient did have a new finding of right pupil greater than left, which was evaluated by a neurologist, Dr. Bueno. Dr. Bueno presumed this to be likely related to the right ocular nerve injury and believed this patient needed followup in the concussion clinic. This ocular motor injury was likely related to his head trauma, which he sustained at the same time as a cause of his mandibular fracture. Additionally during his hospital stay, he was found to have fluid collection in his left calf, which was confirmed on the soft tissue ultrasound as above. Initially, there was erythema overlying this region which did resolve with ceftriaxone. Additionally, there is cellulitis at the right upper extremity with no associated abscess which also was improving with ceftriaxone. The patient admits these are sites of IV drug use. Unfortunately, the patient was given ceftriaxone in the emergency department without a blood culture being drawn. Blood cultures were drawn on the floor again after antibiotics already given and thus far without growth to date. The patient was afebrile during his hospital stay. I and D with General Surgery team was planned on 03/25/19. The patient refused this at the time; however, because of the improving clinical appearance of this, this was a low priority. I discussed that the patient should no longer inject medication and he agrees. He does follow with [facility] for primary care. Additionally during the patient's hospital stay, he had erythema and pain to his bilateral first MTPs of his toes. Orthopedics were consulted and did not believe joint aspiration was necessary and believed that clinically, given the patient's history of gout and frequent flares, that this is likely gout. He is able to move the joints. Naproxen was started during his hospital stay for this and the patient would likely benefit from allopurinol to prevent future flares. Given that the patient had continued jaw pain, once his altered mental status was resolved, this was clearly an urgent need for evaluation by [facility] Service given that the patient has delayed time to seeing a specialist for his jaw fracture over a week since the injury. He is being transferred via [facility] ambulance to [facility]. Of note, the patient was not taking medication for his blood pressure in the outpatient setting and he did have over 4 hypertensive reads of his blood pressure, max SBP was 170 and I started 2.5 mg of lisinopril during his stay. Additionally during the hospital stay, the patient was telling me that he was abusing his prescription for Librium, which was initially given to him as a taper during attempting outpatient cessation of alcohol use. He was taking 25 mg of Librium daily for approximately the last month. For that reason to avoid withdrawal seizures, I gave him Librium 10 mg on 03/25/19 and 5 mg on 03/26/19 and I do not believe he will need further benzodiazepines. CURRENT ACTIVE MEDICATIONS: 1. Suboxone 8 mg/2 mg sublingual film b.i.d. 2. Acetaminophen 975 p.o. q.6 hours p.r.n. pain. 3. Hydralazine 5 mg IV q.6 hours p.r.n. for blood pressure over 170. 4. Lidocaine patch 5% apply transdermally p.r.n. breakthrough pain. 5. Lisinopril 2.5 mg p.o. daily. 6. Naproxen 500 mg p.o. q.12 hours. 7. Nicotine lozenges 4 mg MT q.2 hours p.r.n. nicotine craving. 8. Nicotine patch 21 mg per 24 hour transdermally daily. 9. Ceftriaxone 1 g IV daily. 10. Librium 5 mg p.o. once today. PHYSICAL EXAMINATION ON THE DAY OF TRANSFER: General: Young white male lying in hospital bed, appearing comfortable, in no acute distress, drowsy at times, but very easily arousable with voice. Eyes: Right pupil approximately 2 mm greater than left, reactive to light, though right is minimally delayed. Sclerae anicteric. No nystagmus. ENT: Mucous membranes moist. Neck: Supple without JVD. Lungs: Clear to auscultation throughout. Cardio: Regular rate and rhythm without murmurs, rubs, or gallops. Abdomen: Soft, nontender, nondistended. Extremities: No clubbing, cyanosis, or edema. Neuro: The patient is alert and oriented x3. No focal deficits. Able to move all extremities. Musculoskeletal: Able to extremities as well as digits of the bilateral feet. Skin: Fluid collection on the left calf with no overlying erythema, approximately 5 cm diameter region of erythema to right upper extremity near elbow without fluctuance, which is blanchable, which has receded from borders that I originally drawn. Skin otherwise warm and dry. DISCHARGE PLAN: Upon discharge from [facility], he should follow up at the concussion clinic, and follow up with his primary care provider at [facility] to ensure resolution of his cellulitis. CONDITION ON TRANSFER: Stable. DISPOSITION: Transfer to higher level of care. [facility]. ADMITTING PROVIDER: Dr. Ion Hargrove of the hospitalist service at [facility]. TIME SPENT: Time spent on this transfer is approximately 45 minutes, approximately half this time was spent at the bedside evaluating the patient and confirming safety and discussing the transfer. KRIS QURESHI [id number]/CPS #: [id number] MTDD
[2019-03-26] MEDS ORDERED: chlordiazePOXIDE CAP* 5 MG PO ONE (15:12)
[2019-03-26 16:25] VITALS: BP 152/100
== END 2019-03-26 16:29 | disposition short-term general hospital (02) | DRG 383 ==
LOC: ED 17:25 → INTOOBSV 22:12 → EDHOLD 22:12 → UNDOADMIN 03-24 03:46 → MEDTELE 03-24 07:11 → EDHOLD 03-24 07:11 → OBSVTOIN 03-25 11:00
PROVIDERS: ADMIT Internal Medicine; ATTEND Internal Medicine
DX: L02.416 Cutaneous abscess of left lower limb (principal); G92 Toxic encephalopathy; S02.641A Fracture of ramus of right mandible, initial encounter for closed fracture; S02.601A Fracture of unspecified part of body of right mandible, initial encounter for closed fracture; L03.113 Cellulitis of right upper limb; S06.0X9A Concussion with loss of consciousness of unspecified duration, initial encounter; F11.20 Opioid dependence, uncomplicated; L03.116 Cellulitis of left lower limb; H57.02 Anisocoria; F19.10 Other psychoactive substance abuse, uncomplicated; M10.9 Gout, unspecified; I10 Essential (primary) hypertension; G89.29 Other chronic pain; F10.10 Alcohol abuse, uncomplicated; E87.6 Hypokalemia; G47.33 Obstructive sleep apnea (adult) (pediatric); E66.9 Obesity, unspecified; F17.210 Nicotine dependence, cigarettes, uncomplicated; Y29.XXXA Contact with blunt object, undetermined intent, initial encounter; Y90.0 Blood alcohol level of less than 20 mg/100 ml; Y92.9 Unspecified place or not applicable; Z68.31 Body mass index [BMI] 31.0-31.9, adult; Z88.8 Allergy status to other drugs, medicaments and biological substances; Z88.0 Allergy status to penicillin; Z86.19 Personal history of other infectious and parasitic diseases; Z79.899 Other long term (current) drug therapy
CPT/HCPCS: 36415; 70030; 70110; 70450; 70544; 70547; 70551; 71045; 74018; 76882; 80048; 80053; 80307; 80320; 80329; 81003; 81015; 82140; 82550; 82803; 83605; 83735; 84443; 84484; 85025; 86140; 87040; 87086; 87641; 93005; 96365; 96367; 99284; A9270-GY; G0378; G0480; J0360; J0696; J1885; J2060; J3475

== ENCOUNTER 2023-06-14 19:39 | Observation (INO) ==
[2023-06-14 22:23] LABS: Hematocrit 33.2 % (38-53); Hemoglobin 11.1 g/dL (13.2-16.3); Mean Corpuscular Hgb Conc 33.4 g/dL (31-36); Mean Corpuscular Volume 77.7 fL (80-97); Mean Platelet Volume 7.6 fL (7.5-11.2); Platelet Count 288 10^3/uL (150-450); Red Blood Count 4.27 10^6/uL (4.06-5.63); Red Cell Distribution Width 16.3 % (12-17); White Blood Count 17.4 10^3/uL (3.6-10.2)
[2023-06-14] MEDS ORDERED: Clindamycin 900 MG/D5W BAG 900 MG/50 ML BAG IVPB ONE (22:24)
[2023-06-14 22:41] LABS: Albumin 3.2 g/dL (3.2-5.2); Albumin/Globulin Ratio 0.8 (1-3); C Reactive Protein 252.25 mg/L (<8.01); Calcium 8.3 mg/dL (8.6-10.3); Creatinine, Serum 0.74 mg/dL (0.67-1.17); Globulin 3.9 g/dL (2-4); Potassium 3.5 mmol/L (3.5-5.0); Total Bilirubin 0.4 mg/dL (0.2-1.0); Total Protein 7.1 g/dL (6.4-8.9); eGFR CKD-EPI 120.4 (>60)
[2023-06-14 23:02] LABS: ABS Basophils 0.2 10^3/uL (0.0-0.1); ABS Eosinophils 0.2 10^3/uL (0.0-0.5); ABS Lymphocytes 2.1 10^3/uL (1.0-4.8); ABS Monocytes 1.4 10^3/uL (0.0-1.1); ABS Neutrophils 13.5 10^3/uL (1.5-7.6); ABS Nucleated RBC 0.01 10^3/ul; Anisocytosis 1+; Eosinophil % 1.1 %; Lymphocyte % 12.1 %; Microcytosis 1+; Nucleated Red Blood Cells % 0.1 %/100WBC (0.0-0.8)
[2023-06-14] MEDS ORDERED: Iohexol 350 (CONTRAST) 500 ML MDV IV ONE (23:08)
[2023-06-15] MEDS ORDERED: Morphine 4 MG/ML VIAL (1 ml) IV ONE (01:41)
[2023-06-15] MEDS ORDERED: Ondansetron 4 mg VIAL 2 MG/ML 2 ml VIAL IV PRN (05:22)
[2023-06-15] MEDS ORDERED: Vancomycin 1,000 MG in NS 0.9% 250 ml 250 ML IVPB ONE (05:25)
[2023-06-15] MEDS ORDERED: Piperacillin/Tazobac 3.375 BAG 3.375 GM/100 ML BAG IV ONE (05:25)
[2023-06-15] MEDS ORDERED: Vancomycin per Pharmacy 1 EA NOTE FOLLOW UP SCH (06:00)
[2023-06-15] MEDS ORDERED: Zosyn per Pharmacy NOTE FOLLOW UP SCH (06:00)
[2023-06-15 06:11] LABS: Hematocrit 31.9 % (38-53); Hemoglobin 10.6 g/dL (13.2-16.3); Mean Corpuscular Hemoglobin 25.6 pg (27-33); Mean Corpuscular Hgb Conc 33.1 g/dL (31-36); Mean Corpuscular Volume 77.3 fL (80-97); Mean Platelet Volume 7.4 fL (7.5-11.2); Platelet Count 271 10^3/uL (150-450); Red Blood Count 4.12 10^6/uL (4.06-5.63); Red Cell Distribution Width 16.7 % (12-17); White Blood Count 15.5 10^3/uL (3.6-10.2)
[2023-06-15 06:33] LABS: Albumin/Globulin Ratio 0.8 (1-3); Calcium 8.1 mg/dL (8.6-10.3); Creatinine, Serum 0.77 mg/dL (0.67-1.17); Globulin 3.7 g/dL (2-4); Magnesium 2.2 mg/dL (1.9-2.7); Potassium 3.4 mmol/L (3.5-5.0); Total Bilirubin 0.3 mg/dL (0.2-1.0); Total Protein 6.7 g/dL (6.4-8.9)
[2023-06-15 07:01] LABS: ABS Basophils 0.1 10^3/uL (0.0-0.1); ABS Eosinophils 0.3 10^3/uL (0.0-0.5); ABS Lymphocytes 1.9 10^3/uL (1.0-4.8); ABS Monocytes 1.4 10^3/uL (0.0-1.1); ABS Neutrophils 11.9 10^3/uL (1.5-7.6); ABS Nucleated RBC 0.01 10^3/ul; Eosinophil % 1.7 %; Lymphocyte % 12.2 %
[2023-06-15] MEDS ORDERED: Iohexol 350 (CONTRAST) 500 ML MDV IV ONE (07:08)
[2023-06-15] MEDS: Enoxaparin 40 MG/0.4 ML SYR SUBCUT SCH (07:32)
[2023-06-15] MEDS ORDERED: Potassium Chlor 20 meq TAB.ER PO ONE (07:35)
[2023-06-15] MEDS: ZOSYN 3.375 GM Q8H per EXTENDED INFUSION IV SCH ×2 (09:10→18:08)
[2023-06-15 12:15] LABS: Urine Appearance Clear; Urine Bilirubin Negative (Negative); Urine Blood Negative (Negative); Urine Color Yellow; Urine Glucose Negative (Negative); Urine Ketones Negative (Negative); Urine Nitrite Negative (Negative); Urine Protein Negative (Negative); Urine Urobilinogen Negative (Negative)
[2023-06-15 14:59] LABS: Urine Specific Gravity > 1.060 (1.002-1.030)
[2023-06-15] MEDS: Vancomycin 1,250 MG in NS 0.9% 250 ml 250 ML IVPB SCH ×2 (15:00→23:44)
[2023-06-15] MEDS ORDERED: Naloxone 0.4 mg VIAL 0.4 mg/ml 1 ml VIAL IV PUSH PRN (20:25)
[2023-06-16] MEDS: ZOSYN 3.375 GM Q8H per EXTENDED INFUSION IV SCH ×3 (02:24→18:22)
[2023-06-16] MEDS: Enoxaparin 40 MG/0.4 ML SYR SUBCUT SCH (05:34)
[2023-06-16] MEDS: Vancomycin 1,250 MG in NS 0.9% 250 ml 250 ML IVPB SCH ×3 (08:44→23:24)
[2023-06-16] MEDS ORDERED: Morphine 2 MG/ML SYRINGE IV ONE (14:34)
[2023-06-16] MEDS ORDERED: Vancomycin Trough Check NOTE FOLLOW UP ONE (15:00)
[2023-06-17] MEDS: ZOSYN 3.375 GM Q8H per EXTENDED INFUSION IV SCH (02:13)
[2023-06-17 06:30] VITALS: BP 158/89
[2023-06-17] MEDS ORDERED: Morphine 2 MG/ML SYRINGE IV ONE (06:43)
[2023-06-17] MEDS ORDERED: Vancomycin Trough Check NOTE FOLLOW UP ONE (07:00)
[2023-06-17] MEDS: Enoxaparin 40 MG/0.4 ML SYR SUBCUT SCH (07:03)
[2023-06-19 14:24] LABS: Varicella Zoster Source ARM; Varicella Zoster Virus PCR Negative (Negative)
== END 2023-06-17 08:30 | disposition left against medical advice (07) ==
LOC: ED 19:39 → SUATTDRO 06-15 05:22 → EDHOLD 06-15 05:22 → INTOOBSV 06-15 05:22 → MED 06-15 12:34
PROVIDERS: ADMIT Internal Medicine; ATTEND Internal Medicine